=== PATIENT | female | born 1965 | race Caucasian/White ===

== ENCOUNTER 2019-03-31 01:23 | Inpatient (IN) ==
--- NOTE | 2019-03-31 03:50 | Internal Med History&Physical ---
<Billy Freeman - Last Filed: 03/31/19 04:22> Date of Encounter: 03/31/19 Time of Encounter: 03:40 Internal Medicine - H&P: HPI Admitted From: Emergency Dept History of present illness: Ms. Chaves is a 54 year old female with a past medical history of CHF, COPD on home prednisone, Mucinex, azithromycin and albuterol who presented to the [facility] emergency department with shortness of breath. Patient's family history is unknown at this point, also it is unknown how long the patient's symptoms have been lasting as this is not documented in the original emergency physicians note. The patient is noted to be a current every day smoker. Chart review shows the patient denies any past surgical/psychiatric history, has not reported any further medications or known drug allergies. It is noted that the patient did admit to having a cough and denying fever/chills rest of review of systems questioning is unknown. According to the original emergency physicians note the patient has a long-standing history of COPD but is never had to be on BiPAP or have any hospitalizations. It is noted that the patient arrived to the [facility] ED and had oxygen saturations in the 80% range which was refractory to nasal cannula at 2 L/m, the patient was not able to tolerate BiPAP despite being given Ativan and was refractory to nitroglycerin. The decision was made at that time to intubate the patient with fiberoptic video scope, which is said to be tolerated well without complications using 7.5 ET tube secured at 23 cm at the lips, propofol drip was initiated for sedation. Although there is an x-ray in the patient's chart it does not mention the endotracheal tube placement-I will place order at this time for portable stat chest x-ray for confirmation. EKG performed at the facility notes a sinus tachycardia without acute ischemia. Laboratory analysis from outside facility is significant for an elevated white blood cell count of 18.2, patient's hemoglobin is noted to be high at 16 with hematocrit 46.8 this is likely due to compensation for chronic COPD, patient's ABG reveals a respiratory acidosis with a pH of 7.28 and a PCO2 of 49, we will repeat this ABG as the patient has been on mechanical ventilation now for several hours, patient's potassium is also noted to be slightly decreased at 3.4 I will replace this with 20 mEq of potassium chloride IV push. EKG performed at outside facility shows a sinus tachycardia at a computer analyzed rate of 116 beats per minute, NE interval of 98 milliseconds, a QRS duration of 94 milliseconds, a QT/QTc interval of 331 / 460 milliseconds respectively. There are no significant ST segment elevations, depressions, pathologic Q waves, abnormal T-wave inversions, nor any other signs of acute ischemic change. Assessment and plan: Acute hypoxic/hypercarbic respiratory failure: Secondary to acute on chronic COPD exacerbation Patient intubated and mechanically ventilated with propofol sedation 125 mg methylprednisolone administered along with 6 mL of DuoNeb patient has received a single DuoNeb at outside facility Patient received 2 g magnesium sulfate at outside facility Patient received 500 mg azithromycin from outside facility as well as 1 g of Rocephin Repeat ABG stat plus daily Leukocytosis: Likely secondary to COPD stress response although there is neutrophilia Possible early air space disease Lactic acid within normal limits Time lactic acid Pro calcitonin Bloods/sputum cultures are pending. Hypokalemia: Potassium at 3.4 We will replenish with 20 mEq potassium chloride. DVT prophylaxis: EPCDs Past Med Surg Social Fam HX - Past Medical History Medical history: CHF, COPD Psychiatric history: no psych history - Past Surgical History Surgical History: no surgical history - Social History Smoking Status: Current every day smoker Smokeless Tobacco Status: No Alcohol use: none Drug use: none - Family History Sister Hx Family Cancer: Yes Internal Medicine - H&P: Meds Albuterol Sulfate [Proventil Hfa] 6.7 gm IH BID #1 hfa.[email or web address] 05/02/18 [Rx] Azithromycin [Azithromycin 6-Tab Pack] 250 mg PO PER PKG DI #6 tab 05/02/18 [Rx] Guaifenesin [Mucinex] 1,200 mg PO BID #20 tbbp.12hr 05/02/18 [Rx] predniSONE [PredniSONE] 40 mg PO DAILY #10 tablet 05/02/18 [Rx] Allergy/AdvReac Type Severity Reaction Status Date / Time No Known Allergies Allergy Verified 01/12/18 22:50 ROS unobtainable: due to endotracheal tube, due to mental status All Systems PM: A 10-system review of systems was performed and is negative for pertinent findings except as documented above in the HPI. - Constitutional Vitals: Resp BP Pulse Ox 14 133/92 99 03/31/19 03:31 03/31/19 03:31 03/31/19 03:31 General appearance: Present: A&O X 0 Exam: Upon my initial examination the patient is lying in hospital bed she is intubated, Mechanically ventilated and sedated with propofol to deep sedation Cross scale approximately 4. Patient's skin is warm dry and intact, pupils are equal reactive to light approximately 2 mm, patient's trachea is midline and supple cardiopulmonary auscultation reveals S1 and S2 without S3-S4 no murmurs gallops or rubs appreciated. There are diffuse wheezes noted throughout all l jessika lacey, abdomen is soft nontender nondistended no evidence of trauma, pulses are strong and equal bilaterally, there is no evidence of pedal edema, no cyanosis no pallor no erythema. - Head Head exam: Present: atraumatic, normal inspection, normocephalic - Eye Eye exam: Present: normal appearance, PERRL. Absent: scleral icterus - ENT ENT exam: Present: mucous membranes moist - Neck Neck exam general surgery: Present: supple, trachea midline - Respiratory Respiratory exam: Present: wheezes - Cardiovascular Cardiovascular exam: Present: RRR, +S1, +S2. Absent: clicks, diastolic murmur, distant heart sounds, gallop, irregular rhythm, JVD, rubs, +S3, systolic murmur - GI/Abdominal GI/Abdominal exam: Present: normal bowel sounds, soft. Absent: distended, firm, guarding, hernia, hepatomegaly, rebound, rigid, tenderness, no peritoneal signs - Extremities Exam Extremities exam: Present: warm, radial pulses palpable and symmetrical. Absent: pedal edema - Skin Skin exam: Present: dry, normal color, warm - Time Spent With Patient Total time spent is greater than 50% in coordination of care (as documented) at patient's floor/unit and/or counseling patient: <Fran Dickerson - Last Filed: 03/31/19 05:40> Date of Encounter: 03/31/19 Internal Medicine - H&P: HPI History of present illness: Ms. Chaves is a 54 year old female All Systems PM: A 10-system review of systems was performed and is negative for pertinent findings except as documented above in the HPI. - Constitutional Vitals: Temp Pulse Resp BP Pulse Ox 96.7 F L 90 21 105/67 97 03/31/19 04:00 03/31/19 05:00 03/31/19 05:08 03/31/19 05:08 03/31/19 05:08 Internal Med - H&P Results - ABG Interpretation ABG results: 03/31/19 04:24 ABG pH 7.07 L* D ABG pCO2 85 H* D ABG pO2 87 ABG HCO3 24 ABG Total CO2 27 H ABG O2 Saturation 91 L ABG Base Excess -8 L - Impressions ITS Impressions KUB X-Ray 03/31/19 04:41 IMPRESSION: Intragastric termination of the esophagogastric tube. D/ / David Benitez / David Benitez Interpreting Provider: David Benitez Chest X-Ray 03/31/19 04:43 IMPRESSION: Suboptimally visualized janis. Endotracheal tube terminates over the mid to lower trachea. Left basilar opacities and effusion. D/ / David Benitez / David Benitez Interpreting Provider: David Benitez - Time Spent With Patient Total time spent is greater than 50% in coordination of care (as documented) at patient's floor/unit and/or counseling patient: - Attending Attestation Patient seen and examined independently, including review of objective data including labs. I agree with plan of care as documented below by the resident with the following comments: Face to face encounter at 4am. Patient intubated and no family at bedside thus hisotry is limited and thus reviewed charts. Patient admitted for acute mixed respiratory failure with suspected COPD exacerbation was intubated in the ED and admitted to our ICU. Repeat ABG on arrival showed worsening hypercapnia and acidosis thus increased tidal volume and recheck abg pending. Procalcitonin 0.11 thus held antibiotics at this time. EKG, echocardiogram and trending troponin added to check for cardiac etiologies.
[2019-03-31] MEDS ORDERED: Naloxone 0.4 MG/ML INJ IVP PRN (04:06)
[2019-03-31] MEDS ORDERED: Artificial Tears SOLN 15 ML BOTTLE BOTH EYES PRN (04:06)
[2019-03-31] MEDS ORDERED: methylPREDNISolone 125 MG/2 ML VIAL IVP ONE (04:10)
[2019-03-31] MEDS ORDERED: Ipratropium/Albuterol Neb 3 ML IH ONE (04:10)
[2019-03-31 04:34] LABS: ABG Base Excess -8 mEq/L (-2 to 3); ABG HCO3 24 mEq/L (21-27); ABG Oxygen Saturation 91 % (95-98); ABG PCO2 85 mmHg (35-45); ABG PH 7.07 pH Units (7.32-7.45); ABG PO2 87 mmHg (85-104); ABG TCO2 27 mEq/L (20-26); Blood Gas Modality ASSIST CONTROL; Blood Gas PEEP 5 cm H2O; Blood Gas VT 450 cc
[2019-03-31] MEDS ORDERED: Potassium Chloride 20 MEQ, Lidocaine 1% 2 ML in 0.9 % Sodium Chloride 250 ML IVPB ONE (05:00)
[2019-03-31] MEDS: *HR* FentaNYL (PF) 100 MCG/2 ML VIAL IVP PRN ×2 (05:23→07:48)
[2019-03-31 08:01] LABS: Magnesium 2.3 mg/dL (1.6-2.6); Phosphorous 3.5 mg/dL (2.7-4.5)
[2019-03-31] MEDS ORDERED: *HR* Midazolam HCl 5 MG/5 ML VIAL IVP ONE ×3 (08:52→09:01)
--- NOTE | 2019-03-31 08:57 | Pulmonology Consult Note ---
<Kevin Almendarez W - Last Filed: 03/31/19 13:24> Date of Encounter: 03/31/19 Medications and Allergies Albuterol Sulfate [Proventil Hfa] 6.7 gm IH BID #1 hfa.[email or web address] 05/02/18 [Rx] Azithromycin [Azithromycin 6-Tab Pack] 250 mg PO PER PKG DI #6 tab 05/02/18 [Rx] Guaifenesin [Mucinex] 1,200 mg PO BID #20 tbbp.12hr 05/02/18 [Rx] predniSONE [PredniSONE] 40 mg PO DAILY #10 tablet 05/02/18 [Rx] Allergy/AdvReac Type Severity Reaction Status Date / Time No Known Allergies Allergy Verified 01/12/18 22:50 All Systems: The remainder of the systems were reviewed and are negative Physical Examination Vital Signs: Vital Signs, Last 4 Hours Temp Pulse Resp BP Pulse Ox 03/31/19 13:00 102 21 116/71 98 03/31/19 12:28 98.8 F 03/31/19 12:00 103 18 104/66 99 03/31/19 11:00 95 21 99/62 98 03/31/19 10:19 21 99/65 97 03/31/19 10:00 94 19 99/62 98 Ventilator Settings Ventilator Settings: Ventilator Settings, Last 8 Hours Ventilator Tidal Volume 500 Setting Ventilator Tidal Volume 500 Setting Ventilator Tidal Volume 500 Setting Ventilator Tidal Volume 500 Setting Ventilator Tidal Volume 500 Setting Ventilator Respiratory Rate 18 Setting Ventilator Respiratory Rate 18 Setting Ventilator Respiratory Rate 18 Setting Ventilator Respiratory Rate 18 Setting Ventilator Respiratory Rate 18 Setting Actual Respiratory Rate 21 Actual Respiratory Rate 22 Actual Respiratory Rate 22 Actual Respiratory Rate 22 Positive End Expiratory 5 Pressure Positive End Expiratory 5 Pressure Positive End Expiratory 5 Pressure Positive End Expiratory 5 Pressure Positive End Expiratory 5 Pressure Peak Inspiratory Airway 26 Pressure Peak Inspiratory Airway 20 Pressure Peak Inspiratory Airway 38 Pressure Peak Inspiratory Airway 38 Pressure Results - Laboratory Findings CBC and BMP: 03/31/19 11:41 03/31/19 09:36 ABG ABG pH 7.23 pH Units (7.32-7.45) L 03/31/19 10:51 ABG pCO2 53 mmHg (35-45) H 03/31/19 10:51 ABG pO2 95 mmHg (85-104) 03/31/19 10:51 ABG O2 Saturation 96 % (95-98) 03/31/19 10:51 Abnormal lab findings: Abnormal lab results WBC 15.7 K/mcL (4.3-11.1) H 03/31/19 11:41 RDW 14.7 % (11.5-14.5) H 03/31/19 11:41 Neutrophils # 15.0 K/mcL (1.6-8.9) H 03/31/19 11:41 Lymphocytes # 0.4 K/mcL (0.6-4.6) L 03/31/19 11:41 ABG pH 7.23 pH Units (7.32-7.45) L 03/31/19 10:51 ABG pCO2 53 mmHg (35-45) H 03/31/19 10:51 ABG Total CO2 27 mEq/L (20-26) H 03/31/19 04:24 ABG O2 Saturation 91 % (95-98) L 03/31/19 04:24 ABG Base Excess -6 mEq/L (-2 to 3) L 03/31/19 10:51 Chloride 111 mEq/L (98-107) H 03/31/19 09:36 Carbon Dioxide 18 mEq/L (23-29) L 03/31/19 09:36 Glucose 176 mg/dL (70-105) H 03/31/19 09:36 POC Glucose 162 mg/dL (70-99) H 03/31/19 12:14 Calcium 7.9 mg/dL (8.6-10.3) L 03/31/19 09:36 Total Bilirubin 0.2 mg/dL (0.3-1.0) L 03/31/19 09:36 - Clinical Findings Intake & Output: Intake & Output 03/30/19 03/31/19 03/31/19 23:59 07:59 15:59 Intake Total 362 / 362 Output Total 850 / 1275 425 / 1275 Balance -488 / -913 -425 / -913 Weight 63.4 kg Consult Discharge Plan - Plan Referrals: NONE,PCP [Primary Care Provider] - - Attending Attestation I examined this patient and my medical decision-making was reviewed with the Resident Physician. I agree with the documented findings, disposition and treatment plan as described except to the extent set forth below. We independently had [id number] contact with the patient I spent 33 min of Critical Care time with this patient. It involved decision making of high complexity to assess, manipulate, and support vital organ system failure and/or to prevent further life threatening deterioration of the patie nt's condition. The time involved in the performance of separately reportable procedures was not counted toward critical care time. Patient seen and examined at bedside Labs, radiology, chart personally reviewed. Management was reviewed during multidisciplinary critical care rounds. RIGGER THIRD: Patient presenting with acute encephalopathy likely secondary to metabolic derangement she got intubated deeply sedated for her respiratory status no gross neurological deficits per medical record prior to intubation and the patient does have spontaneous movement of all extremities without clear focal neurological deficits. Goal Cross day would be about 3 or 4 given her underlying respiratory status to mitigate the effects of of the ventilator dys synchrony Pulm: Acute on chronic hypoxic hypercapnic respiratory failure which appears likely secondary to COPD exacerbation requiring intubation she had a very severe respiratory acidosis reduction now improving with ventilator management further adjusted her ventilator to decrease tidal volume and increased ID ratio also decreased inspiratory time to facilitate this. The implant O pressures are appropriate she will need deep sedation possibly even paralysis of situation is not improved we will continue schedule bronchodilators IV steroids and antibiotics for now Cards: Blood pressure monitored and stable continue monitoring on telemetry GI: GI prophylaxis while on vent Nutrition: Nothing by mouth for now Renal: UOP Monitored, Cont to Trend sCr and monitor Electrolytes. ID: She is on broad-spectrum antibiotics for possible pneumonia. De-escalate based upon clinical course and cultures Heme/Onc: DVT prophylaxis given Endo: Glucose Monitored Integ/MSK: Skin Care per routine ICU Nursing Protocol to prevent ulcers. Lines: All lines examined without evidence of infection : Dispo: Monitor in ICU for critical illness CODE: Full Code <Rei Guevara F - Last Filed: 03/31/19 13:42> Date of Encounter: 03/31/19 Time of Encounter: 08:57 Assessment and Plan (1) Acute respiratory failure Current Visit: Yes Status: Acute Likely d/t COPD exacerbation of chronic disease. Patient was intubated and sedated, now on fentanyl, propofol, versed gtt. Received azithromycin, rocephin, Mg at [facility]. Plan: - Intubated and sedated, vent bundle ordered, daily ABGs - Started on steroids, duonebs - Cont azithryomcyin, rocephin 03/31 - Cont to monitor vital signs Qualifiers: Respiratory failure complication: hypoxia and hypercapnia Qualified Co de(s): J96.01 - Acute respiratory failure with hypoxia; J96.02 - Acute respiratory failure with hypercapnia (2) Acute encephalopathy Current Visit: Yes Status: Acute Likely d/t hypoxia and metabolic derangements. Plan: - Intubated and sedated - Cont to monitor neuro status and vitals signs (3) Leukocytosis Current Visit: Yes Status: Acute Likely 2/2 to COPD stress response, there are elevated neutrophils. Will still consider infection as possible source. Plan: - Cont rocephin and ceftriaxone - Blood, sputum, urine cx pending - Resp infection panel and urine antigen testing pending Qualifiers: Leukocytosis type: unspecified Qualified Code(s): D72.829 - Elevated white blood cell count, unspecified (4) DVT prophylaxis Current Visit: Yes Status: Acute DVT PPX: heparin SQ Analgesia: fentanyl Sedation: versed, propofol SBT: none Glycemic control: none Bowl regimen: none Activity: intubated/sedated Fluids: none Electrolytes: replete as necessary Nutrition: none GI ppx: PPI Lines: 2x PIVs, ET, OG, meier Consults: pulm Code: FULL Dispo: ICU History of Present Illness Consult date: 03/31/19 Requesting physician: Fili Villarreal Reason for consult: dyspnea Chief complaint: hypoxia History of present illness: Vision is a 54-year-old female with a past medical history CHF, COPD presented with respiratory distress. She is transferred here from [facility] emergency department. Patient did endorse a history of being a current every day smoker. Per chart review, patient denied having any cough, fevers, chills. She has a long-standing history of COPD, but has never had to be on BiPAP or hospitalized. In the ED, patient was not able to tolerate BiPAP despite getting Ativan and was refractory to nitroglycerin. Patient was then intubated with propofol for sedation. An EKG at the facility noted sinus tachycardia without acute ischemia. Initial labs are significant for a WBC of 18.2, hemoglobin 16, respiratory acidosis with pH of 7.28 and PCO2 49, K of 3.4 which was repleted. This morning at bedside, patient was still intubated/sedated. Appeared to be in discomfort, fentanyl and versed were added. Other testing was obtained including a respiratory infection panel and urine antigens for Legionella and strep pneumo. Past Med Surg Social Fam HX - Past Medical History Source: unable to obtain Medical history: CHF, COPD Psychiatric history: no psych history - Past Surgical History Surgical History: no surgical history - Social History Smoking Status: Current every day smoker Smokeless Tobacco Status: No Alcohol use: none Drug use: none - Family History Sister Hx Family Cancer: Yes ROS unobtainable: due to endotracheal tube All Systems: The remainder of the systems were reviewed and are negative Physical Examination Vital Signs: Vital Signs, Last 4 Hours Temp Pulse Resp BP Pulse Ox 03/31/19 08:03 97.5 F L 87 18 106/67 96 03/31/19 07:54 91 03/31/19 07:22 22 106/67 96 03/31/19 07:00 81 22 104/68 95 03/31/19 06:00 100 22 99/63 98 03/31/19 05:08 21 105/67 97 03/31/19 05:00 90 20 105/67 97 General appearance: no acute distress Eyes: nonicteric ENT: oropharynx moist Neck: supple Effort: normal Inspection: normal Auscultation: bilateral: clear Percussion: bilateral: not dull Cardiovascular: regular rate and rhythm Gastrointestinal: normoactive bowel sounds, non-distended Integumentary: normal Extremities: no cyanosis, no edema, no clubbing Musculoskeletal: no deformities, ROM normal unable to assess due to mental status Ventilator Settings Ventilator Settings: Ventilator Settings, Last 8 Hours Ventilator Tidal Volume 500 Setting Ventilator Tidal Volume 500 Setting Ventilator Tidal Volume 500 Setting Ventilator Tidal Volume 500 Setting Ventilator Tidal Volume 500 Setting Ventilator Tidal Volume 500 Setting Ventilator Tidal Volume 450 Setting Ventilator Tidal Volume 500 Setting Ventilator Tidal Volume 450 Setting Ventilator Tidal Volume 450 Setting Ventilator Tidal Volume 450 Setting Ventilator Respiratory Rate 18 Setting Ventilator Respiratory Rate 18 Setting Ventilator Respiratory Rate 18 Setting Ventilator Respiratory Rate 18 Setting Ventilator Respiratory Rate 18 Setting Ventilator Respiratory Rate 18 Setting Ventilator Respiratory Rate 14 Setting Ventilator Respiratory Rate 18 Setting Ventilator Respiratory Rate 14 Setting Ventilator Respiratory Rate 14 Setting Ventilator Respiratory Rate 14 Setting Actual Respiratory Rate 22 Actual Respiratory Rate 22 Actual Respiratory Rate 22 Actual Respiratory Rate 21 Actual Respiratory Rate 20 Actual Respiratory Rate 14 Actual Respiratory Rate 14 Actual Respiratory Rate 14 Positive End Expiratory 5 Pressure Positive End Expiratory 5 Pressure Positive End Expiratory 5 Pressure Positive End Expiratory 5 Pressure Positive End Expiratory 5 Pressure Positive End Expiratory 5 Pressure Positive End Expiratory 5 Pressure Positive End Expiratory 5 Pressure Positive End Expiratory 5 Pressure Positive End Expiratory 5 Pressure Peak Inspiratory Airway 20 Pressure Peak Inspiratory Airway 38 Pressure Peak Inspiratory Airway 38 Pressure Peak Inspiratory Airway 29 Pressure Peak Inspiratory Airway 33 Pressure Peak Inspiratory Airway 36 Pressure Peak Inspiratory Airway 35 Pressure Peak Inspiratory Airway 36 Pressure Results - Laboratory Findings CBC and BMP: 03/31/19 11:41 03/31/19 09:36 ABG ABG pH 7.07 pH Units (7.32-7.45) L* D 03/31/19 04:24 ABG pCO2 85 mmHg (35-45) H* D 03/31/19 04:24 ABG pO2 87 mmHg (85-104) 03/31/19 04:24 ABG O2 Saturation 91 % (95-98) L 03/31/19 04:24 Abnormal lab findings: Abnormal lab results ABG pH 7.07 pH Units (7.32-7.45) L* D 03/31/19 04:24 ABG pCO2 85 mmHg (35-45) H* D 03/31/19 04:24 ABG Total CO2 27 mEq/L (20-26) H 03/31/19 04:24 ABG O2 Saturation 91 % (95-98) L 03/31/19 04:24 ABG Base Excess -8 mEq/L (-2 to 3) L 03/31/19 04:24 - Clinical Findings Intake & Output: Intake & Output 03/30/19 03/31/19 03/31/19 23:59 07:59 15:59 Intake Total 362 / 362 Output Total 850 / 850 Balance -488 / -488 Weight 63.4 kg
[2019-03-31] MEDS: FentaNYL (PF) 1,000 MCG in 0.9 % Sodium Chloride 80 ML IVC SCH (09:12)
[2019-03-31] MEDS: Chlorhexidine Rinse 15 ML MOUTHWASH MM SCH ×2 (09:18→20:39)
[2019-03-31] MEDS: Artificial Tears SOLN 15 ML BOTTLE BOTH EYES SCH ×4 (09:19→20:39)
[2019-03-31] MEDS ORDERED: Ipratropium/Albuterol Neb 3 ML ONE (09:51)
[2019-03-31] MEDS: Ipratropium/Albuterol Neb 3 ML IH SCH ×6 (09:52→23:52)
[2019-03-31] MEDS ORDERED: Perflutren Lipid Microsphere 1.3 ML in 0.9 % Sodium Chloride 8.7 ML IVP ONE (10:30)
[2019-03-31 10:40] LABS: BUN/Creatinine Ratio 14 (6-26); Blood Urea Nitrogen 10 mg/dL (6-20); Carbon Dioxide 18 mEq/L (23-29); Chloride 111 mEq/L (98-107); Glucose 176 mg/dL (70-105); Potassium 4.4 mEq/L (3.5-5.1); Sodium 140 mEq/L (136-145); eGFR For African Americans > 60 (> 60); eGFR For Non-African Americans > 60 (> 60)
[2019-03-31 10:41] LABS: Alanine Aminotransferase 17 Units/L (7-52); Albumin 4.1 g/dL (3.5-5.7); Albumin/Globulin Ratio 1.5 (1.1-2.2); Alkaline Phosphatase 56 Units/L (34-104); Aspartate Amino Transferase 19 Units/L (13-39); Bilirubin,Total 0.2 mg/dL (0.3-1.0); Calcium 7.9 mg/dL (8.6-10.3); Globulin 2.8 g/dL (2.4-3.5); Osmolality,Calculated 293 (280-300); Total Protein 6.9 g/dL (6.4-8.9)
[2019-03-31 10:56] LABS: ABG Base Excess -6 mEq/L (-2 to 3); ABG HCO3 22 mEq/L (21-27); ABG Oxygen Saturation 96 % (95-98); ABG PCO2 53 mmHg (35-45); ABG PH 7.23 pH Units (7.32-7.45); ABG PO2 95 mmHg (85-104); ABG TCO2 24 mEq/L (20-26); Blood Gas Modality SF; Blood Gas PEEP 5 cm H2O; Blood Gas VT 480 cc
--- NOTE | 2019-03-31 12:08 | Event Note ---
Date of Encounter: 03/31/19 Time of Encounter: 07:10 I reviewed the case from the eyewear manufacturing tech this morning, and I saw patient independently. I also discussed the patient in collaboration with Dr. Almendarez and the MDR team. Patient is currently intubated, sedated, and exhibiting some wheezing and coughing on ventilator. No family members available to [facility]. Exam: Vitals reviewed General: Intubated, sedated HEENT: ETT/OG in place, no icterus Chest: diffuse wheezing, prolonged expiratory phase, occasionally coughing on vent; RRR, no MTR Abdomen: soft, NT, ND, no HSMG, + BS Ext: equal pulses; no calf swelling; no edema Labs reviewed Imp/Plan: 1. Acute hypercarbic and hypoxic respiraotry failure: Vent managmenet per Dr. Garcia; discussed in MDR rounds. Steroids, aerosols, and antibiotics ordered. Urine toxicity screen ordered. 2. Hypokalemia: Resolved; monitor. 3. Leukocytosis: Blood cultures pending. Will order sputum culture. Continue antibiotics. 4. DVT prophylaxis: Heparin SQ.
[2019-03-31 12:14] LABS: Basophils % 0.1 %; Hematocrit 43.5 % (35.3-44.9); Immature Granulocytes % 0.5 % (0-4); Lymphocytes # 0.4 K/mcL (0.6-4.6); Lymphocytes % 2.6 %; Mean Corpuscular HGB Conc 32.2 g/dL (31.6-35.5); Mean Corpuscular Hemoglobin 30.6 pg (28.0-33.3); Mean Platelet Volume 12.1 fL (9.4-12.4); Monocytes # 0.2 K/mcL (0.0-1.3); Monocytes % 1.3 %; Platelet Count 210 K/mcL (140-400); Red Blood Count 4.58 M/mcL (3.82-4.97); Red Cell Distribution Width 14.7 % (11.5-14.5); Segmented Neutrophils % 95.5 %; White Blood Count 15.7 K/mcL (4.3-11.1)
[2019-03-31 13:25] LABS: Bilirubin,Urine Small (Negative); Blood,Urine Moderate (Negative); Clarity,Urine Turbid (Clear); Color,Urine Yellow (Yellow); Glucose,Urine (UA) 250 mg/dL (Normal); Ketones,Urine Negative (Negative); Leukocyte Esterase,Urine Negative (Negative); Nitrite,Urine Negative (Negative); Protein,Urine 30 mg/dL (Neg-Trace); Specific Gravity,Urine > 1.030 (1.010-1.025); Urobilinogen,Urine Normal (Normal)
[2019-03-31 13:27] LABS: Bacteria,Urine None Seen per hpf (None-Few); Hyaline Casts,Urine None Seen per lpf (None-Few); RBC,Urine TNTC per hpf (0-3); Squamous Epithelial Cell,Urine Many per lpf (None-Few)
[2019-03-31 13:51] LABS: Amphetamine Screen,Urine Negative ng/mL (Cutoff=1000); Barbiturate Screen,Urine Negative ng/mL (Cutoff=200); Benzodiazepines Screen,Urine Positive ng/mL (Cutoff=200); Cannabinoid Screen,Urine Negative ng/mL (Cutoff = 50); Cocaine Screen,Urine Negative ng/mL (Cutoff= 300); Opiate Screen,Urine Negative ng/mL (Cutoff=300); Phencyclidine Screen,Urine Negative ng/mL (Cutoff=25)
[2019-03-31] MEDS: Acetaminophen 325 MG TABLET PO PRN (16:45)
[2019-03-31] MEDS: *HR* Heparin 5,000 UNIT/ML VIAL SQ SCH (16:46)
[2019-03-31] MEDS: methylPREDNISolone 125 MG/2 ML VIAL IVP SCH (16:46)
[2019-03-31] MEDS: Pantoprazole 40 MG VIAL IVP SCH (17:42)
--- NOTE | 2019-03-31 17:49 | Electrocardiograph Report ---
[place] [id number] Test Date: 2019-03-31 Pat Name: Barbara Chaves Department: 109 Room: 12 Gender: F Education Intern: : 1965 Requested By: Fran Dickerson Order Number: [id number] Reading MD: Lev Navarro Measurements Intervals Given Rate: 82 P: 72 MN: 161 QRS: 82 QRSD: 97 T: 69 QT: 431 QTc: 470 Interpretive Statements SINUS RHYTHM Electronically Signed On 03-31-2019 17:47:08 EDT by Lev Navraro
[2019-03-31 18:54] LABS: Adenovirus Not Detected (Not Detect); Bordetella Pertussis Not Detected (Not Detect); Chlamydophila pneumoniae Not Detected (Not Detect); Coronavirus 229E Not Detected (Not Detect); Coronavirus HKU1 Not Detected (Not Detect); Coronavirus NL63 Not Detected (Not Detect); Coronavirus OC43 Not Detected (Not Detect); Human Metapneumovirus Not Detected (Not Detect); Human Rhinovirus/Enterovirus DETECTED (Not Detect); Influenza A Subtype 2009 H1 Not Detected (Not Detect); Influenza A Untypeable Not Detected (Not Detect); Influenza B Not Detected (Not Detect); Mycoplasma pneumoniae Not Detected (Not Detect); Parainfluenza Virus 1 Not Detected (Not Detect); Parainfluenza Virus 2 Not Detected (Not Detect); Parainfluenza Virus 3 Not Detected (Not Detect); Parainfluenza Virus 4 Not Detected (Not Detect); Respiratory Syncytial Virus Not Detected (Not Detect)
[2019-03-31] MEDS: Calcium Gluconate 1gm/50mL 1 GM/50 ML BAG IVPB SCH ×2 (21:15→21:32)
[2019-03-31] MEDS: cefTRIAXone 1,000 MG in Water for inj. (sterile) 10 ML IVP SCH (22:50)
[2019-03-31] MEDS: Azithromycin 500 MG in 0.9 % Sodium Chloride 250 ML IVPB SCH (23:08)
[2019-04-01] MEDS: Artificial Tears SOLN 15 ML BOTTLE BOTH EYES SCH ×7 (00:49→23:11)
[2019-04-01] MEDS: FentaNYL (PF) 1,000 MCG in 0.9 % Sodium Chloride 80 ML IVC SCH ×2 (00:50→18:57)
[2019-04-01] MEDS: Ipratropium/Albuterol Neb 3 ML IH SCH ×5 (03:30→20:36)
[2019-04-01 04:47] LABS: ABG Base Excess -3 mEq/L (-2 to 3); ABG HCO3 23 mEq/L (21-27); ABG Oxygen Saturation 98 % (95-98); ABG PCO2 43 mmHg (35-45); ABG PH 7.34 pH Units (7.32-7.45); ABG PO2 102 mmHg (85-104); ABG TCO2 24 mEq/L (20-26); Blood Gas Modality PRVC; Blood Gas PEEP 5 cm H2O; Blood Gas VT 480 cc
[2019-04-01] MEDS: *HR* Heparin 5,000 UNIT/ML VIAL SQ SCH ×2 (05:12→17:08)
[2019-04-01] MEDS: methylPREDNISolone 125 MG/2 ML VIAL IVP SCH ×2 (05:12→17:08)
[2019-04-01 05:49] LABS: Basophils % 0.1 %; Hematocrit 38.6 % (35.3-44.9); Immature Granulocytes % 0.5 % (0-4); Lymphocytes # 0.8 K/mcL (0.6-4.6); Lymphocytes % 4.7 %; Mean Corpuscular HGB Conc 31.9 g/dL (31.6-35.5); Mean Corpuscular Hemoglobin 29.7 pg (28.0-33.3); Mean Corpuscular Volume 93.2 fL (83.0-100.0); Mean Platelet Volume 12.3 fL (9.4-12.4); Monocytes # 0.9 K/mcL (0.0-1.3); Neutrophils # 15.7 K/mcL (1.6-8.9); Platelet Count 209 K/mcL (140-400); Red Blood Count 4.14 M/mcL (3.82-4.97); Red Cell Distribution Width 15.1 % (11.5-14.5); Segmented Neutrophils % 89.7 %; White Blood Count 17.5 K/mcL (4.3-11.1)
[2019-04-01 05:51] LABS: Hemoglobin 12.3 g/dL (11.5-15.4)
[2019-04-01 06:08] LABS: Alanine Aminotransferase 15 Units/L (7-52); Albumin 3.8 g/dL (3.5-5.7); Albumin/Globulin Ratio 1.5 (1.1-2.2); Alkaline Phosphatase 49 Units/L (34-104); Aspartate Amino Transferase 11 Units/L (13-39); BUN/Creatinine Ratio 23 (6-26); Bilirubin,Total 0.2 mg/dL (0.3-1.0); Blood Urea Nitrogen 14 mg/dL (6-20); Calcium 8.7 mg/dL (8.6-10.3); Carbon Dioxide 25 mEq/L (23-29); Chloride 108 mEq/L (98-107); Globulin 2.5 g/dL (2.4-3.5); Glucose 142 mg/dL (70-105); Magnesium 2.2 mg/dL (1.6-2.6); Osmolality,Calculated 295 (280-300); Potassium 4.4 mEq/L (3.5-5.1); Sodium 141 mEq/L (136-145); Total Protein 6.3 g/dL (6.4-8.9); eGFR For African Americans > 60 (> 60); eGFR For Non-African Americans > 60 (> 60)
[2019-04-01] MEDS: Pantoprazole 40 MG VIAL IVP SCH (07:41)
[2019-04-01] MEDS: Acetaminophen 325 MG TABLET PO PRN (07:41)
[2019-04-01] MEDS: Chlorhexidine Rinse 15 ML MOUTHWASH MM SCH ×2 (07:41→20:16)
--- NOTE | 2019-04-01 09:02 | Pulmonology Progress Note ---
Date of Encounter: 04/01/19 Time of Encounter: 07:00 Assessment and Plan (1) Acute respiratory failure with hypoxia and hypercapnia Current Visit: Yes Status: Acute I spent 34min of Critical Care time with this patient. It involved decision making of high complexity to assess, manipulate, and support vital organ system failure and/or to prevent further life threatening deterioration of the patient's condition. The time involved in the performance of separately reportable procedures was not counted toward critical care time. Patient seen and examined at bedside Labs, radiology, chart personally reviewed. Management was reviewed during multidisciplinary critical care rounds. 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 Continue to lower propofol first and decreased [place] we will add Precedex to achieve this continue analgesia with fentanyl Pulm: Acute on chronic hypoxic hypercapnic respiratory failure secondary to COPD exacerbation likely mediated by a viral infection. Patient remains on the vent acceptable gas exchange today we will do new aggressive bronchodilator and systemic glucocorticoid strategy once her mental status improves can consider spontaneous breathing trial. Cards: Blood pressure monitored and stable today continue monitoring on telemetry GI: GI prophylaxis is given while on vent Nutrition: Enteral nutrition per dietary recommendations Renal: UOP Monitored, Cont to Trend sCr and monitor Electrolytes. ID: Respiratory PCR positive for logan-/Rhino virus symptomatic management of this she has pyuria clinically and we will continue to treat for urinary tract infection pending final culture. She does have leukocytosis which in part may be from that degree of systemic glucocorticoid administration Heme/Onc: DVT prophylaxis given while on vent H&H and platelets remained stable continue daily monitoring Endo: Glucose Monitored continue sliding scale insulin as needed Integ/MSK: Skin Care per routine ICU Nursing Protocol to prevent ulcers. Lines: All lines examined without evidence of infection : Dispo: Remain ICU for critical illness CODE: Full (2) Acute exacerbation of chronic obstructive airways disease Current Visit: No Status: Acute (3) Acute encephalopathy Current Visit: Yes Status: Acute (4) Urinary tract infection Current Visit: Yes Status: Acute Qualifiers: Qualified Code(s): N39.0 - Urinary tract infection, site not specified; R31.9 - Hematuria, unspecified Subjective Principal diagnosis: Respiratory Failure Interval history: Remains sedated overnight when sedation was tried to be lifted today she ended up coughing and desaturating. Blood pressure is been stable. Nursing staff is noted to have nadja pus from the urine out of the Anthony catheter Objective PUL Vital signs: Last Vital Signs Temp 97.9 F 04/01/19 06:57 Pulse 90 04/01/19 08:00 Resp 17 04/01/19 08:00 BP 98/67 04/01/19 08:00 Pulse Ox 97 04/01/19 08:00 General appearance: other (intubated and sedated ) Eyes: nonicteric ENT: other (ETT in satisfactory position ) Neck: supple Auscultation: bilateral: wheezes (faint expiratory wheezes noted ) Cardiovascular: regular rate and rhythm Gastrointestinal: normoactive bowel sounds, soft, non-tender Integumentary: normal Extremities: no cyanosis, no edema, no clubbing Musculoskeletal: no deformities pupils equal and round, unable to assess due to mental status other (calm appearing ) Ventilator Settings Ventilator Settings: Ventilator Settings, Last 8 Hours Ventilator Tidal Volume 480 Setting Ventilator Tidal Volume 480 Setting Ventilator Tidal Volume 480 Setting Ventilator Tidal Volume 480 Setting Ventilator Tidal Volume 480 Setting Ventilator Tidal Volume 480 Setting Ventilator Tidal Volume 480 Setting Ventilator Tidal Volume 480 Setting Ventilator Tidal Volume 480 Setting Ventilator Respiratory Rate 16 Setting Ventilator Respiratory Rate 16 Setting Ventilator Respiratory Rate 16 Setting Ventilator Respiratory Rate 16 Setting Ventilator Respiratory Rate 16 Setting Ventilator Respiratory Rate 16 Setting Ventilator Respiratory Rate 16 Setting Ventilator Respiratory Rate 16 Setting Ventilator Respiratory Rate 16 Setting Actual Respiratory Rate 16 Actual Respiratory Rate 18 Actual Respiratory Rate 18 Actual Respiratory Rate 16 Actual Respiratory Rate 16 Actual Respiratory Rate 16 Actual Respiratory Rate 16 Actual Respiratory Rate 16 Positive End Expiratory 5 Pressure Positive End Expiratory 5 Pressure Positive End Expiratory 5 Pressure Positive End Expiratory 5 Pressure Positive End Expiratory 5 Pressure Positive End Expiratory 5 Pressure Positive End Expiratory 5 Pressure Positive End Expiratory 5 Pressure Positive End Expiratory 5 Pressure Peak Inspiratory Airway 25 Pressure Peak Inspiratory Airway 26 Pressure Peak Inspiratory Airway 26 Pressure Peak Inspiratory Airway 28 Pressure Peak Inspiratory Airway 26 Pressure Peak Inspiratory Airway 27 Pressure Peak Inspiratory Airway 29 Pressure Peak Inspiratory Airway 26 Pressure Results - Laboratory Findings CBC and BMP: 04/01/19 05:12 04/01/19 05:12 ABG ABG pH 7.34 pH Units (7.32-7.45) 04/01/19 04:44 ABG pCO2 43 mmHg (35-45) 04/01/19 04:44 ABG pO2 102 mmHg (85-104) 04/01/19 04:44 ABG O2 Saturation 98 % (95-98) 04/01/19 04:44 Abnormal lab findings: Abnormal lab results WBC 17.5 K/mcL (4.3-11.1) H 04/01/19 05:12 RDW 15.1 % (11.5-14.5) H 04/01/19 05:12 Neutrophils # 15.7 K/mcL (1.6-8.9) H 04/01/19 05:12 Lymphocytes # 0.4 K/mcL (0.6-4.6) L 03/31/19 11:41 ABG pH 7.23 pH Units (7.32-7.45) L 03/31/19 10:51 ABG pCO2 53 mmHg (35-45) H 03/31/19 10:51 ABG Total CO2 27 mEq/L (20-26) H 03/31/19 04:24 ABG O2 Saturation 91 % (95-98) L 03/31/19 04:24 ABG Base Excess -3 mEq/L (-2 to 3) L 04/01/19 04:44 Chloride 108 mEq/L (98-107) H 04/01/19 05:12 Carbon Dioxide 18 mEq/L (23-29) L 03/31/19 09:36 Glucose 142 mg/dL (70-105) H 04/01/19 05:12 POC Glucose 123 mg/dL (70-99) H 04/01/19 06:01 Calcium 7.9 mg/dL (8.6-10.3) L 03/31/19 09:36 Total Bilirubin 0.2 mg/dL (0.3-1.0) L 04/01/19 05:12 AST 11 Units/L (13-39) L 04/01/19 05:12 Serum Total Protein 6.3 g/dL (6.4-8.9) L 04/01/19 05:12 Urine Clarity Turbid (Clear) A 03/31/19 12:52 Ur Specific [place] > 1.030 (1.010-1.025) H 03/31/19 12:52 Urine Protein 30 mg/dL (Neg-Trace) H 03/31/19 12:52 Urine Glucose (UA) 250 mg/dL (Normal) H 03/31/19 12:52 Urine Blood Moderate (Negative) H 03/31/19 12:52 Urine Bilirubin Small (Negative) H 03/31/19 12:52 Urine Microscopic RBC TNTC per hpf (0-3) H 03/31/19 12:52 Urine Microscopic WBC 5-15 per hpf (0-3) H 03/31/19 12:52 Ur Squamous Epith Cells Many per lpf (None-Few) H 03/31/19 12:52 Ur Buprenorphine Scrn Positive ng/mL (Cutoff=5) H 03/31/19 12:57 U Benzodiazepines Scrn Positive ng/mL (Esndnb=272) H 03/31/19 12:57 Entero/Rhino (PCR) DETECTED (Not Detect) A 03/31/19 17:08 - Microbiology Findings Microbiology Findings: Microbiology, Last 48 Hours 03/31/19 12:57 Urine Culture - Preliminary Urine,[place] Culture is incubating. 03/31/19 12:57 Legionella Antigen - Final Urine,Catheterized (Straight) Streptococcus pneumoniae Antigen (M - Final 03/31/19 07:53 Sputum Culture - Preliminary Aspirate - Diagnostic Findings Chest x-ray: report reviewed, image reviewed - Clinical Findings Intake & Output: Intake & Output 03/31/19 04/01/19 04/01/19 23:59 07:59 15:59 Intake Total 310 / 772 740 / 740 Output Total 160 / 1435 825 / 825 Balance 150 / -663 -85 / -85 Weight 69.7 kg - VTE Documentation of Mechanical Device: Intermittent pneumatic compression device Consult Discharge Plan - Plan Referrals: NONE,PCP [Primary Care Provider] -
[2019-04-01] MEDS ORDERED: Budesonide/Formoterol 160/4.5 1 PUFF INH IH ONE (20:30)
[2019-04-01] MEDS: Budesonide/Formoterol 80/4.5 1 PUFF INH IH SCH (20:37)
[2019-04-01] MEDS: Azithromycin 500 MG in 0.9 % Sodium Chloride 250 ML IVPB SCH (21:58)
[2019-04-01] MEDS: cefTRIAXone 1,000 MG in Water for inj. (sterile) 10 ML IVP SCH ×2 (21:59→23:11)
[2019-04-02] MEDS: Ipratropium/Albuterol Neb 3 ML IH SCH ×7 (00:09→23:34)
[2019-04-02] MEDS: Artificial Tears SOLN 15 ML BOTTLE BOTH EYES SCH ×6 (04:30→23:10)
[2019-04-02] MEDS: *HR* Heparin 5,000 UNIT/ML VIAL SQ SCH ×2 (05:38→18:23)
[2019-04-02] MEDS: methylPREDNISolone 125 MG/2 ML VIAL IVP SCH ×2 (05:38→18:22)
[2019-04-02 05:42] LABS: ABG Base Excess 4 mEq/L (-2 to 3); ABG HCO3 30 mEq/L (21-27); ABG Oxygen Saturation 97 % (95-98); ABG PCO2 51 mmHg (35-45); ABG PH 7.38 pH Units (7.32-7.45); ABG PO2 91 mmHg (85-104); ABG TCO2 32 mEq/L (20-26); Blood Gas Modality ASSIST CONTROL; Blood Gas PEEP 5 cm H2O; Blood Gas VT 480 cc
[2019-04-02 06:25] LABS: Basophils % 0.1 %; Hematocrit 40.2 % (35.3-44.9); Hemoglobin 12.7 g/dL (11.5-15.4); Immature Granulocytes % 1.5 % (0-4); Lymphocytes % 5.8 %; Mean Corpuscular HGB Conc 31.6 g/dL (31.6-35.5); Mean Corpuscular Hemoglobin 30.3 pg (28.0-33.3); Mean Corpuscular Volume 95.9 fL (83.0-100.0); Mean Platelet Volume 11.9 fL (9.4-12.4); Monocytes # 0.7 K/mcL (0.0-1.3); Monocytes % 4.5 %; Neutrophils # 14.6 K/mcL (1.6-8.9); Platelet Count 215 K/mcL (140-400); Red Blood Count 4.19 M/mcL (3.82-4.97); Red Cell Distribution Width 15.4 % (11.5-14.5); Segmented Neutrophils % 88.1 %; White Blood Count 16.6 K/mcL (4.3-11.1)
[2019-04-02 06:42] LABS: Alanine Aminotransferase 15 Units/L (7-52); Albumin 3.7 g/dL (3.5-5.7); Albumin/Globulin Ratio 1.5 (1.1-2.2); Alkaline Phosphatase 44 Units/L (34-104); Aspartate Amino Transferase 10 Units/L (13-39); BUN/Creatinine Ratio 44 (6-26); Bilirubin,Total 0.2 mg/dL (0.3-1.0); Blood Urea Nitrogen 19 mg/dL (6-20); Calcium 8.3 mg/dL (8.6-10.3); Carbon Dioxide 28 mEq/L (23-29); Chloride 108 mEq/L (98-107); Globulin 2.4 g/dL (2.4-3.5); Glucose 133 mg/dL (70-105); Magnesium 2.3 mg/dL (1.6-2.6); Osmolality,Calculated 300 (280-300); Phosphorous 2.8 mg/dL (2.7-4.5); Sodium 143 mEq/L (136-145); Total Protein 6.1 g/dL (6.4-8.9); eGFR For African Americans > 60 (> 60); eGFR For Non-African Americans > 60 (> 60)
--- NOTE | 2019-04-02 06:49 | Pulmonology Progress Note ---
Date of Encounter: 04/02/19 Time of Encounter: 06:49 Assessment and Plan (1) Acute respiratory failure with hypoxia and hypercapnia Current Visit: Yes Status: Acute . Patient seen and examined at bedside Labs, radiology, chart personally reviewed. Management was reviewed during multidisciplinary critical care rounds. 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 Wean sedation for CPAP trial Pulm: Acute on chronic hypoxic hypercapnic respiratory failure secondary to COPD exacerbation likely mediated by a viral infection. Patient remains on the vent acceptable gas exchange today we will continue aggressive bronchodilator and systemic glucocorticoid strategy once her mental status improves can consider spontaneous breathing trial. Cards: Blood pressure monitored and stable today continue monitoring on telemetry GI: GI prophylaxis is given while on vent Nutrition: Enteral nutrition per dietary recommendations Renal: UOP Monitored, Cont to Trend sCr and monitor Electrolytes. ID: Respiratory PCR positive for entero-/Rhino virus symptomatic management of this. Switched to Rocephin for UTI will treat for 10 days Heme/Onc: DVT prophylaxis given while on vent H&H and platelets remained stable continue daily monitoring Endo: Glucose Monitored continue sliding scale insulin as needed Integ/MSK: Skin Care per routine ICU Nursing Protocol to prevent ulcers. Lines: All lines examined without evidence of infection : Dispo: Remain ICU for critical illness CODE: Full (2) Acute exacerbation of chronic obstructive airways disease Current Visit: No Status: Acute (3) Acute encephalopathy Current Visit: Yes Status: Acute (4) Urinary tract infection Current Visit: Yes Status: Acute Qualifiers: Qualified Code(s): N39.0 - Urinary tract infection, site not specified; R31.9 - Hematuria, unspecified Subjective Principal diagnosis: Respiratory Failure Interval history: Able to decrease sedation markedly although patient still is obtunded and unable to follow commands. Blood pressures been stable urine output acceptable no other events overnight Objective PUL Vital signs: Last Vital Signs Temp 97.5 F L 04/02/19 04:00 Pulse 99 04/02/19 06:00 Resp 22 04/02/19 06:00 BP 107/76 04/02/19 06:00 Pulse Ox 93 04/02/19 06:00 General appearance: other (Sedated) Eyes: nonicteric Neck: supple Auscultation: bilateral: wheezes Cardiovascular: regular rate and rhythm Gastrointestinal: normoactive bowel sounds, soft, non-tender Integumentary: normal Extremities: no edema Musculoskeletal: no deformities other (She does have spontaneous movement in all extremities without clear focal neurological deficit) other (Agitated at times) Ventilator Settings Ventilator Settings: Ventilator Settings, Last 8 Hours Ventilator Tidal Volume 480 Setting Ventilator Tidal Volume 480 Setting Ventilator Tidal Volume 480 Setting Ventilator Tidal Volume 480 Setting Ventilator Tidal Volume 480 Setting Ventilator Tidal Volume 480 Setting Ventilator Tidal Volume 480 Setting Ventilator Tidal Volume 480 Setting Ventilator Tidal Volume 480 Setting Ventilator Tidal Volume 480 Setting Ventilator Tidal Volume 480 Setting Ventilator Respiratory Rate 16 Setting Ventilator Respiratory Rate 16 Setting Ventilator Respiratory Rate 16 Setting Ventilator Respiratory Rate 16 Setting Ventilator Respiratory Rate 16 Setting Ventilator Respiratory Rate 16 Setting Ventilator Respiratory Rate 16 Setting Ventilator Respiratory Rate 16 Setting Ventilator Respiratory Rate 16 Setting Ventilator Respiratory Rate 16 Setting Ventilator Respiratory Rate 16 Setting Actual Respiratory Rate 22 Actual Respiratory Rate 16 Actual Respiratory Rate 18 Actual Respiratory Rate 16 Actual Respiratory Rate 16 Actual Respiratory Rate 17 Actual Respiratory Rate 16 Actual Respiratory Rate 16 Actual Respiratory Rate 16 Actual Respiratory Rate 16 Positive End Expiratory 5 Pressure Positive End Expiratory 5 Pressure Positive End Expiratory 5 Pressure Positive End Expiratory 5 Pressure Positive End Expiratory 5 Pressure Positive End Expiratory 5 Pressure Positive End Expiratory 5 Pressure Positive End Expiratory 5 Pressure Positive End Expiratory 5 Pressure Positive End Expiratory 5 Pressure Positive End Expiratory 5 Pressure Peak Inspiratory Airway 31 Pressure Peak Inspiratory Airway 24 Pressure Peak Inspiratory Airway 25 Pressure Peak Inspiratory Airway 22 Pressure Peak Inspiratory Airway 20 Pressure Peak Inspiratory Airway 23 Pressure Peak Inspiratory Airway 30 Pressure Peak Inspiratory Airway 28 Pressure Peak Inspiratory Airway 28 Pressure Peak Inspiratory Airway 26 Pressure Results - Laboratory Findings CBC and BMP: 04/02/19 06:09 04/02/19 06:09 ABG ABG pH 7.38 pH Units (7.32-7.45) 04/02/19 05:35 ABG pCO2 51 mmHg (35-45) H 04/02/19 05:35 ABG pO2 91 mmHg (85-104) 04/02/19 05:35 ABG O2 Saturation 97 % (95-98) 04/02/19 05:35 Abnormal lab findings: Abnormal lab results WBC 16.6 K/mcL (4.3-11.1) H 04/02/19 06:09 RDW 15.4 % (11.5-14.5) H 04/02/19 06:09 Neutrophils # 14.6 K/mcL (1.6-8.9) H 04/02/19 06:09 Lymphocytes # 0.4 K/mcL (0.6-4.6) L 03/31/19 11:41 ABG pH 7.23 pH Units (7.32-7.45) L 03/31/19 10:51 ABG pCO2 51 mmHg (35-45) H 04/02/19 05:35 ABG HCO3 30 mEq/L (21-27) H 04/02/19 05:35 ABG Total CO2 32 mEq/L (20-26) H 04/02/19 05:35 ABG O2 Saturation 91 % (95-98) L 03/31/19 04:24 ABG Base Excess 4 mEq/L (-2 to 3) H 04/02/19 05:35 Chloride 108 mEq/L (98-107) H 04/02/19 06:09 Carbon Dioxide 18 mEq/L (23-29) L 03/31/19 09:36 Creatinine 0.43 mg/dL (0.60-1.20) L 04/02/19 06:09 BUN/Creatinine Ratio 44 (6-26) H 04/02/19 06:09 Glucose 133 mg/dL (70-105) H 04/02/19 06:09 POC Glucose 138 mg/dL (70-99) H 04/02/19 05:24 Calcium 8.3 mg/dL (8.6-10.3) L 04/02/19 06:09 Total Bilirubin 0.2 mg/dL (0.3-1.0) L 04/02/19 06:09 AST 10 Units/L (13-39) L 04/02/19 06:09 Serum Total Protein 6.1 g/dL (6.4-8.9) L 04/02/19 06:09 Urine Clarity Turbid (Clear) A 03/31/19 12:52 Ur Specific [place] > 1.030 (1.010-1.025) H 03/31/19 12:52 Urine Protein 30 mg/dL (Neg-Trace) H 03/31/19 12:52 Urine Glucose (UA) 250 mg/dL (Normal) H 03/31/19 12:52 Urine Blood Moderate (Negative) H 03/31/19 12:52 Urine Bilirubin Small (Negative) H 03/31/19 12:52 Urine Microscopic RBC TNTC per hpf (0-3) H 03/31/19 12:52 Urine Microscopic WBC 5-15 per hpf (0-3) H 03/31/19 12:52 Ur Squamous Epith Cells Many per lpf (None-Few) H 03/31/19 12:52 Ur Buprenorphine Scrn Positive ng/mL (Cutoff=5) H 03/31/19 12:57 U Benzodiazepines Scrn Positive ng/mL (Vcpeue=268) H 03/31/19 12:57 Entero/Rhino (PCR) DETECTED (Not Detect) A 03/31/19 17:08 - Microbiology Findings Microbiology Findings: Microbiology, Last 48 Hours 03/31/19 07:53 Sputum Culture - Preliminary Aspirate 03/31/19 12:57 Urine Culture - Preliminary Urine,[place] Culture is incubating. 03/31/19 12:57 Legionella Antigen - Final Urine,Catheterized (Straight) Streptococcus pneumoniae Antigen (M - Final - Clinical Findings Intake & Output: Intake & Output 04/01/19 04/01/19 04/02/19 15:59 23:59 07:59 Intake Total 360 / 2114 1014 / 2114 300 / 300 Output Total 520 / 1895 250 / 1895 600 / 600 Balance -160 / 219 764 / 219 -300 / -300 Weight 69.7 kg - VTE Documentation of Mechanical Device: Intermittent pneumatic compression device Consult Discharge Plan - Plan Referrals: NONE,PCP [Primary Care Provider] -
[2019-04-02] MEDS: Budesonide/Formoterol 80/4.5 1 PUFF INH IH SCH ×2 (07:28→19:23)
[2019-04-02] MEDS: Chlorhexidine Rinse 15 ML MOUTHWASH MM SCH ×2 (08:22→16:00)
[2019-04-02] MEDS: Pantoprazole 40 MG VIAL IVP SCH (08:22)
[2019-04-02] MEDS: Dexmedetomidine HCl 400 MCG/100 ML MLS IVC SCH ×3 (08:46→23:00)
[2019-04-02] MEDS: cefTRIAXone 1,000 MG in Water for inj. (sterile) 10 ML IVP SCH (21:58)
[2019-04-02] MEDS: Azithromycin 500 MG in 0.9 % Sodium Chloride 250 ML IVPB SCH (23:10)
[2019-04-03] MEDS: Artificial Tears SOLN 15 ML BOTTLE BOTH EYES SCH ×5 (03:35→19:53)
[2019-04-03 03:40] LABS: Basophils % 0.2 %; Hematocrit 39.6 % (35.3-44.9); Hemoglobin 12.5 g/dL (11.5-15.4); Immature Granulocytes % 1.8 % (0-4); Lymphocytes # 0.8 K/mcL (0.6-4.6); Lymphocytes % 7.5 %; Mean Corpuscular HGB Conc 31.6 g/dL (31.6-35.5); Mean Corpuscular Hemoglobin 30.6 pg (28.0-33.3); Mean Corpuscular Volume 97.1 fL (83.0-100.0); Monocytes # 0.4 K/mcL (0.0-1.3); Monocytes % 3.9 %; Neutrophils # 9.4 K/mcL (1.6-8.9); Platelet Count 212 K/mcL (140-400); Red Blood Count 4.08 M/mcL (3.82-4.97); Red Cell Distribution Width 14.7 % (11.5-14.5); Segmented Neutrophils % 86.6 %; White Blood Count 10.8 K/mcL (4.3-11.1)
[2019-04-03 04:01] LABS: Alanine Aminotransferase 14 Units/L (7-52); Albumin 3.6 g/dL (3.5-5.7); Albumin/Globulin Ratio 1.4 (1.1-2.2); Alkaline Phosphatase 38 Units/L (34-104); Aspartate Amino Transferase 10 Units/L (13-39); BUN/Creatinine Ratio 47 (6-26); Bilirubin,Total 0.2 mg/dL (0.3-1.0); Blood Urea Nitrogen 21 mg/dL (6-20); Calcium 8.3 mg/dL (8.6-10.3); Carbon Dioxide 25 mEq/L (23-29); Chloride 110 mEq/L (98-107); Globulin 2.6 g/dL (2.4-3.5); Glucose 168 mg/dL (70-105); Magnesium 2.2 mg/dL (1.6-2.6); Osmolality,Calculated 303 (280-300); Potassium 4.4 mEq/L (3.5-5.1); Sodium 143 mEq/L (136-145); Total Protein 6.2 g/dL (6.4-8.9); eGFR For African Americans > 60 (> 60); eGFR For Non-African Americans > 60 (> 60)
[2019-04-03] MEDS: Ipratropium/Albuterol Neb 3 ML IH SCH ×5 (04:03→20:27)
[2019-04-03 04:52] LABS: ABG Base Excess 6 mEq/L (-2 to 3); ABG HCO3 32 mEq/L (21-27); ABG Oxygen Saturation 97 % (95-98); ABG PCO2 50 mmHg (35-45); ABG PH 7.41 pH Units (7.32-7.45); ABG PO2 88 mmHg (85-104); ABG TCO2 33 mEq/L (20-26); Blood Gas Modality ASSIST CONTROL; Blood Gas PEEP 5 cm H2O; Blood Gas VT 480 cc
[2019-04-03] MEDS: Dexmedetomidine HCl 400 MCG/100 ML MLS IVC SCH ×4 (04:58→23:55)
[2019-04-03] MEDS: methylPREDNISolone 125 MG/2 ML VIAL IVP SCH ×2 (05:19→18:23)
[2019-04-03] MEDS: *HR* Heparin 5,000 UNIT/ML VIAL SQ SCH ×2 (05:19→18:22)
[2019-04-03] MEDS: Budesonide/Formoterol 80/4.5 1 PUFF INH IH SCH ×2 (07:45→20:27)
[2019-04-03] MEDS: Chlorhexidine Rinse 15 ML MOUTHWASH MM SCH ×2 (09:54→19:53)
[2019-04-03] MEDS: Pantoprazole 40 MG VIAL IVP SCH (09:55)
--- NOTE | 2019-04-03 11:04 | Pulmonology Progress Note ---
Date of Encounter: 04/03/19 Time of Encounter: 07:00 Assessment and Plan (1) Acute respiratory failure with hypoxia and hypercapnia Current Visit: Yes Status: Acute . Patient seen and examined at bedside Labs, radiology, chart personally reviewed. Management was reviewed during multidisciplinary critical care rounds. 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 Wean sedation for CPAP trial. Will send for head CT to rule out acute HEMODIALYSIS TECHNICIAN proces Pulm: Acute on chronic hypoxic hypercapnic respiratory failure secondary to COPD exacerbation likely mediated by a viral infection. Patient remains on the vent acceptable gas exchange today we will continue aggressive bronchodilator and systemic glucocorticoid strategy once her mental status improves can consider spontaneous breathing trial. Cards: Blood pressure monitored and stable today continue monitoring on telemetry GI: GI prophylaxis is given while on vent Nutrition: Enteral nutrition per dietary recommendations Renal: UOP Monitored, Cont to Trend sCr and monitor Electrolytes. ID: Respiratory PCR positive for entero-/Rhino virus symptomatic management of this. Switched to Rocephin for UTI will treat for 10 days Heme/Onc: DVT prophylaxis given while on vent H&H and platelets remained stable continue daily monitoring Endo: Glucose Monitored continue sliding scale insulin as needed Integ/MSK: Skin Care per routine ICU Nursing Protocol to prevent ulcers. Lines: All lines examined without evidence of infection : Dispo: Remain ICU for critical illness CODE: Full (2) Acute exacerbation of chronic obstructive airways disease Current Visit: No Status: Acute (3) Acute encephalopathy Current Visit: Yes Status: Acute (4) Urinary tract infection Current Visit: Yes Status: Acute Qualifiers: Qualified Code(s): N39.0 - Urinary tract infection, site not specified; R31.9 - Hematuria, unspecified Subjective Principal diagnosis: Respiratory Failure Interval history: Unfortunately when patient's sedation is lifted she displays severe hyperactive delirium and she quickly has to be re-sedated because she breathes in the 50s. No other change clinically blood pressure stable Objective PUL Vital signs: Last Vital Signs Temp 98.3 F 04/03/19 03:54 Pulse 72 04/03/19 10:00 Resp 19 04/03/19 10:00 BP 137/87 04/03/19 10:00 Pulse Ox 96 04/03/19 10:00 GEN: Sedated on vent she is unable to follow commands when sedation is lifted per nursing report all extremities have been moved there is no deficit HEENT: Pupils reactive to light bilaterally Resp: Bilateral breath sounds she has faint expiratory wheezes Cardio: Heart sounds audible no murmur regular rhythm GI: Abdomen is soft nondistended no grimace to deep palpation Ext: Trace lower extremity edema, pulses are easily palpable in all extremities Skin: No rash or purpura Neuro: Unable to assess because of sedation Psych: Calm on vent currently Ventilator Settings Ventilator Settings: Ventilator Settings, Last 8 Hours Ventilator Tidal Volume 480 Setting Ventilator Tidal Volume 480 Setting Ventilator Tidal Volume 480 Setting Ventilator Tidal Volume 480 Setting Ventilator Tidal Volume 480 Setting Ventilator Tidal Volume 480 Setting Ventilator Tidal Volume 480 Setting Ventilator Tidal Volume 480 Setting Ventilator Tidal Volume 480 Setting Ventilator Tidal Volume 480 Setting Ventilator Respiratory Rate 16 Setting Ventilator Respiratory Rate 16 Setting Ventilator Respiratory Rate 16 Setting Ventilator Respiratory Rate 16 Setting Ventilator Respiratory Rate 16 Setting Ventilator Respiratory Rate 16 Setting Ventilator Respiratory Rate 16 Setting Ventilator Respiratory Rate 16 Setting Ventilator Respiratory Rate 16 Setting Ventilator Respiratory Rate 16 Setting Actual Respiratory Rate 20 Actual Respiratory Rate 20 Actual Respiratory Rate 18 Actual Respiratory Rate 20 Actual Respiratory Rate 24 Actual Respiratory Rate 20 Actual Respiratory Rate 21 Actual Respiratory Rate 20 Actual Respiratory Rate 20 Positive End Expiratory 5 Pressure Positive End Expiratory 5 Pressure Positive End Expiratory 5 Pressure Positive End Expiratory 5 Pressure Positive End Expiratory 5 Pressure Positive End Expiratory 5 Pressure Positive End Expiratory 5 Pressure Positive End Expiratory 5 Pressure Positive End Expiratory 5 Pressure Positive End Expiratory 5 Pressure Peak Inspiratory Airway 22 Pressure Peak Inspiratory Airway 23 Pressure Peak Inspiratory Airway 22 Pressure Peak Inspiratory Airway 29 Pressure Peak Inspiratory Airway 28 Pressure Peak Inspiratory Airway 40 Pressure Peak Inspiratory Airway 27 Pressure Peak Inspiratory Airway 28 Pressure Peak Inspiratory Airway 28 Pressure Results - Laboratory Findings CBC and BMP: 04/03/19 03:28 04/03/19 03:28 ABG ABG pH 7.41 pH Units (7.32-7.45) 04/03/19 04:49 ABG pCO2 50 mmHg (35-45) H 04/03/19 04:49 ABG pO2 88 mmHg (85-104) 04/03/19 04:49 ABG O2 Saturation 97 % (95-98) 04/03/19 04:49 Abnormal lab findings: Abnormal lab results WBC 16.6 K/mcL (4.3-11.1) H 04/02/19 06:09 RDW 14.7 % (11.5-14.5) H 04/03/19 03:28 Neutrophils # 9.4 K/mcL (1.6-8.9) H 04/03/19 03:28 Lymphocytes # 0.4 K/mcL (0.6-4.6) L 03/31/19 11:41 ABG pH 7.23 pH Units (7.32-7.45) L 03/31/19 10:51 ABG pCO2 50 mmHg (35-45) H 04/03/19 04:49 ABG HCO3 32 mEq/L (21-27) H 04/03/19 04:49 ABG Total CO2 33 mEq/L (20-26) H 04/03/19 04:49 ABG O2 Saturation 91 % (95-98) L 03/31/19 04:24 ABG Base Excess 6 mEq/L (-2 to 3) H 04/03/19 04:49 Chloride 110 mEq/L (98-107) H 04/03/19 03:28 Carbon Dioxide 18 mEq/L (23-29) L 03/31/19 09:36 BUN 21 mg/dL (6-20) H 04/03/19 03:28 Creatinine 0.45 mg/dL (0.60-1.20) L 04/03/19 03:28 BUN/Creatinine Ratio 47 (6-26) H 04/03/19 03:28 Glucose 168 mg/dL (70-105) H 04/03/19 03:28 POC Glucose 149 mg/dL (70-99) H 04/03/19 05:52 Calculated Osmolality 303 (280-300) H 04/03/19 03:28 Calcium 8.3 mg/dL (8.6-10.3) L 04/03/19 03:28 Total Bilirubin 0.2 mg/dL (0.3-1.0) L 04/03/19 03:28 AST 10 Units/L (13-39) L 04/03/19 03:28 Serum Total Protein 6.2 g/dL (6.4-8.9) L 04/03/19 03:28 Urine Clarity Turbid (Clear) A 03/31/19 12:52 Ur Specific [place] > 1.030 (1.010-1.025) H 03/31/19 12:52 Urine Protein 30 mg/dL (Neg-Trace) H 03/31/19 12:52 Urine Glucose (UA) 250 mg/dL (Normal) H 03/31/19 12:52 Urine Blood Moderate (Negative) H 03/31/19 12:52 Urine Bilirubin Small (Negative) H 03/31/19 12:52 Urine Microscopic RBC TNTC per hpf (0-3) H 03/31/19 12:52 Urine Microscopic WBC 5-15 per hpf (0-3) H 03/31/19 12:52 Ur Squamous Epith Cells Many per lpf (None-Few) H 03/31/19 12:52 Ur Buprenorphine Scrn Positive ng/mL (Cutoff=5) H 03/31/19 12:57 U Benzodiazepines Scrn Positive ng/mL (Gfdwut=051) H 03/31/19 12:57 Entero/Rhino (PCR) DETECTED (Not Detect) A 03/31/19 17:08 - Microbiology Findings Microbiology Findings: Microbiology, Last 48 Hours 03/31/19 12:57 Urine Culture - Final Urine,[place] No growth. 03/31/19 07:53 Sputum Culture - Preliminary Aspirate - Clinical Findings Intake & Output: Intake & Output 04/02/19 04/03/19 04/03/19 23:59 07:59 15:59 Intake Total 1189 / 1869 893 / 915 5 Output Total 150 / 1850 700 / 700 Balance 1038 193 / 215 Weight 68.8 kg - VTE Documentation of Mechanical Device: Intermittent pneumatic compression device Consult Discharge Plan - Plan Referrals: NONE,PCP [Primary Care Provider] -
[2019-04-03] MEDS: FentaNYL (PF) 1,000 MCG in 0.9 % Sodium Chloride 80 ML IVC SCH (19:36)
[2019-04-03] MEDS: cefTRIAXone 1,000 MG in Water for inj. (sterile) 10 ML IVP SCH (22:05)
[2019-04-03] MEDS: Azithromycin 500 MG in 0.9 % Sodium Chloride 250 ML IVPB SCH (22:05)
[2019-04-04] MEDS: Artificial Tears SOLN 15 ML BOTTLE BOTH EYES SCH ×7 (00:03→23:33)
[2019-04-04] MEDS: Ipratropium/Albuterol Neb 3 ML IH SCH ×7 (00:29→23:25)
[2019-04-04] MEDS: Dexmedetomidine HCl 400 MCG/100 ML MLS IVC SCH ×4 (04:39→22:05)
[2019-04-04] MEDS: *HR* Heparin 5,000 UNIT/ML VIAL SQ SCH ×2 (04:58→17:59)
[2019-04-04] MEDS: methylPREDNISolone 125 MG/2 ML VIAL IVP SCH ×2 (04:59→17:59)
[2019-04-04 05:18] LABS: Basophils % 0.2 %; Hematocrit 40.9 % (35.3-44.9); Hemoglobin 12.9 g/dL (11.5-15.4); Lymphocytes # 1.3 K/mcL (0.6-4.6); Lymphocytes % 11.8 %; Mean Corpuscular HGB Conc 31.5 g/dL (31.6-35.5); Mean Corpuscular Hemoglobin 30.1 pg (28.0-33.3); Mean Corpuscular Volume 95.3 fL (83.0-100.0); Mean Platelet Volume 12.2 fL (9.4-12.4); Monocytes # 0.5 K/mcL (0.0-1.3); Monocytes % 4.4 %; Neutrophils # 9.1 K/mcL (1.6-8.9); Platelet Count 221 K/mcL (140-400); Red Blood Count 4.29 M/mcL (3.82-4.97); Red Cell Distribution Width 14.5 % (11.5-14.5); Segmented Neutrophils % 81.6 %; White Blood Count 11.2 K/mcL (4.3-11.1)
[2019-04-04 05:27] LABS: ABG Base Excess 2 mEq/L (-2 to 3); ABG HCO3 28 mEq/L (21-27); ABG Oxygen Saturation 92 % (95-98); ABG PCO2 49 mmHg (35-45); ABG PH 7.37 pH Units (7.32-7.45); ABG PO2 66 mmHg (85-104); ABG TCO2 30 mEq/L (20-26); Blood Gas Modality ASSIST CONTROL
[2019-04-04 05:30] LABS: Alanine Aminotransferase 16 Units/L (7-52); Albumin 3.6 g/dL (3.5-5.7); Albumin/Globulin Ratio 1.4 (1.1-2.2); Alkaline Phosphatase 38 Units/L (34-104); Aspartate Amino Transferase 11 Units/L (13-39); BUN/Creatinine Ratio 43 (6-26); Bilirubin,Total 0.2 mg/dL (0.3-1.0); Blood Urea Nitrogen 19 mg/dL (6-20); Calcium 8.5 mg/dL (8.6-10.3); Carbon Dioxide 23 mEq/L (23-29); Chloride 108 mEq/L (98-107); Globulin 2.6 g/dL (2.4-3.5); Glucose 179 mg/dL (70-105); Magnesium 2.1 mg/dL (1.6-2.6); Osmolality,Calculated 297 (280-300); Phosphorous 2.7 mg/dL (2.7-4.5); Potassium 4.3 mEq/L (3.5-5.1); Sodium 140 mEq/L (136-145); Total Protein 6.2 g/dL (6.4-8.9); eGFR For African Americans > 60 (> 60); eGFR For Non-African Americans > 60 (> 60)
[2019-04-04] MEDS: Budesonide/Formoterol 80/4.5 1 PUFF INH IH SCH ×2 (08:01→19:42)
[2019-04-04] MEDS: Pantoprazole 40 MG VIAL IVP SCH (09:28)
[2019-04-04] MEDS: Chlorhexidine Rinse 15 ML MOUTHWASH MM SCH ×2 (09:28→20:14)
[2019-04-04] MEDS: FentaNYL (PF) 1,000 MCG in 0.9 % Sodium Chloride 80 ML IVC SCH ×2 (11:22→23:32)
--- NOTE | 2019-04-04 13:32 | Pulmonology Progress Note ---
Date of Encounter: 04/04/19 Time of Encounter: 09:00 Assessment and Plan (1) Acute respiratory failure with hypoxia and hypercapnia Current Visit: Yes Status: Acute Patient presented with acute hypoxic and hypercapnic respiratory failure complicated by substance abuse and also hypoventilation, V/Q mismatch by her COPD. Patient is on mechanical ventilation low tidal volume strategy adjusted the minute ventilation attempted spontaneous breathing trial patient agitated causing ventilator asynchrony. Is going to be a challenge in liberating from mechanical ventilation. (2) Acute encephalopathy Current Visit: Yes Status: Acute Patient acute encephalopathy most likely due to polysubstance abuse and most likely baseline anxiety disorder contributing to the current picture will add fentanyl try to liberate the midazolam drip. Will add the antipsychotic most likely atypical antipsychotic like the quetiapine . Before adding the medication we will check QT prolongation. (3) Acute exacerbation of chronic obstructive airways disease Current Visit: No Status: Acute Patient has viral exacerbation of COPD to continue bronchodilators and steroids patient did not do well in responders breathing trial contributed due to agitated delirium causing ventilator asynchrony. Will slowly add antipsychotics and we will reevaluate. (4) DVT prophylaxis Current Visit: Yes Status: Acute To continue heparin Subjective Principal diagnosis: Respiratory Failure Interval history: Patient did not have any acute events overnight. Patient did not do well in responders breathing trial because of agitation causing ventilator asynchrony worsening have V/Q mismatch. Patient continued to be on high sedation for his agitated delirium. Objective PUL Vital signs: Last Vital Signs Temp 98.9 F 04/04/19 12:05 Pulse 95 04/04/19 13:00 Resp 24 04/04/19 13:21 BP 121/84 04/04/19 13:21 Pulse Ox 95 04/04/19 13:21 General appearance: no acute distress Eyes: nonicteric ENT: oropharynx moist Auscultation: bilateral: diminished breath sounds, wheezes (Minimal scattered wheezes) Cardiovascular: regular rate and rhythm Gastrointestinal: normoactive bowel sounds Extremities: no cyanosis, no edema unable to assess due to mental status Ventilator Settings Ventilator Settings: Ventilator Settings, Last 8 Hours Ventilator Tidal Volume 480 Setting Ventilator Tidal Volume 480 Setting Ventilator Tidal Volume 480 Setting Ventilator Tidal Volume 480 Setting Ventilator Tidal Volume 480 Setting Ventilator Tidal Volume 480 Setting Ventilator Tidal Volume 480 Setting Ventilator Tidal Volume 480 Setting Ventilator Tidal Volume 480 Setting Ventilator Tidal Volume 480 Setting Ventilator Tidal Volume 480 Setting Ventilator Tidal Volume 480 Setting Ventilator Tidal Volume 480 Setting Ventilator Respiratory Rate 16 Setting Ventilator Respiratory Rate 16 Setting Ventilator Respiratory Rate 16 Setting Ventilator Respiratory Rate 16 Setting Ventilator Respiratory Rate 16 Setting Ventilator Respiratory Rate 16 Setting Ventilator Respiratory Rate 16 Setting Ventilator Respiratory Rate 16 Setting Ventilator Respiratory Rate 16 Setting Ventilator Respiratory Rate 16 Setting Ventilator Respiratory Rate 16 Setting Ventilator Respiratory Rate 16 Setting Ventilator Respiratory Rate 16 Setting Actual Respiratory Rate 24 Actual Respiratory Rate 24 Actual Respiratory Rate 26 Actual Respiratory Rate 26 Actual Respiratory Rate 28 Actual Respiratory Rate 30 Actual Respiratory Rate 27 Actual Respiratory Rate 32 Actual Respiratory Rate 26 Actual Respiratory Rate 28 Actual Respiratory Rate 32 Actual Respiratory Rate 30 Actual Respiratory Rate 28 Positive End Expiratory 5 Pressure Positive End Expiratory 5 Pressure Positive End Expiratory 5 Pressure Positive End Expiratory 5 Pressure Positive End Expiratory 5 Pressure Positive End Expiratory 5 Pressure Positive End Expiratory 5 Pressure Positive End Expiratory 5 Pressure Positive End Expiratory 5 Pressure Positive End Expiratory 5 Pressure Positive End Expiratory 5 Pressure Positive End Expiratory 5 Pressure Positive End Expiratory 5 Pressure Peak Inspiratory Airway 21 Pressure Peak Inspiratory Airway 21 Pressure Peak Inspiratory Airway 23 Pressure Peak Inspiratory Airway 24 Pressure Peak Inspiratory Airway 23 Pressure Peak Inspiratory Airway 23 Pressure Peak Inspiratory Airway 21 Pressure Peak Inspiratory Airway 26 Pressure Peak Inspiratory Airway 24 Pressure Peak Inspiratory Airway 25 Pressure Peak Inspiratory Airway 26 Pressure Peak Inspiratory Airway 36 Pressure Peak Inspiratory Airway 28 Pressure Results - Laboratory Findings CBC and BMP: 04/04/19 04:32 04/04/19 04:32 ABG ABG pH 7.37 pH Units (7.32-7.45) 04/04/19 05:23 ABG pCO2 49 mmHg (35-45) H 04/04/19 05:23 ABG pO2 66 mmHg (85-104) L 04/04/19 05:23 ABG O2 Saturation 92 % (95-98) L 04/04/19 05:23 Abnormal lab findings: Abnormal lab results WBC 11.2 K/mcL (4.3-11.1) H 04/04/19 04:32 MCHC 31.5 g/dL (31.6-35.5) L 04/04/19 04:32 RDW 14.7 % (11.5-14.5) H 04/03/19 03:28 Neutrophils # 9.1 K/mcL (1.6-8.9) H 04/04/19 04:32 Lymphocytes # 0.4 K/mcL (0.6-4.6) L 03/31/19 11:41 ABG pH 7.23 pH Units (7.32-7.45) L 03/31/19 10:51 ABG pCO2 49 mmHg (35-45) H 04/04/19 05:23 ABG pO2 66 mmHg (85-104) L 04/04/19 05:23 ABG HCO3 28 mEq/L (21-27) H 04/04/19 05:23 ABG Total CO2 30 mEq/L (20-26) H 04/04/19 05:23 ABG O2 Saturation 92 % (95-98) L 04/04/19 05:23 ABG Base Excess 6 mEq/L (-2 to 3) H 04/03/19 04:49 Chloride 108 mEq/L (98-107) H 04/04/19 04:32 Carbon Dioxide 18 mEq/L (23-29) L 03/31/19 09:36 BUN 21 mg/dL (6-20) H 04/03/19 03:28 Creatinine 0.44 mg/dL (0.60-1.20) L 04/04/19 04:32 BUN/Creatinine Ratio 43 (6-26) H 04/04/19 04:32 Glucose 179 mg/dL (70-105) H 04/04/19 04:32 POC Glucose 214 mg/dL (70-99) H 04/04/19 11:36 Calculated Osmolality 303 (280-300) H 04/03/19 03:28 Calcium 8.5 mg/dL (8.6-10.3) L 04/04/19 04:32 Total Bilirubin 0.2 mg/dL (0.3-1.0) L 04/04/19 04:32 AST 11 Units/L (13-39) L 04/04/19 04:32 Serum Total Protein 6.2 g/dL (6.4-8.9) L 04/04/19 04:32 Urine Clarity Turbid (Clear) A 03/31/19 12:52 Ur Specific [place] > 1.030 (1.010-1.025) H 03/31/19 12:52 Urine Protein 30 mg/dL (Neg-Trace) H 03/31/19 12:52 Urine Glucose (UA) 250 mg/dL (Normal) H 03/31/19 12:52 Urine Blood Moderate (Negative) H 03/31/19 12:52 Urine Bilirubin Small (Negative) H 03/31/19 12:52 Urine Microscopic RBC TNTC per hpf (0-3) H 03/31/19 12:52 Urine Microscopic WBC 5-15 per hpf (0-3) H 03/31/19 12:52 Ur Squamous Epith Cells Many per lpf (None-Few) H 03/31/19 12:52 Ur Buprenorphine Scrn Positive ng/mL (Cutoff=5) H 03/31/19 12:57 U Benzodiazepines Scrn Positive ng/mL (Ovwdsd=433) H 03/31/19 12:57 Entero/Rhino (PCR) DETECTED (Not Detect) A 03/31/19 17:08 - Microbiology Findings Microbiology Findings: Microbiology, Last 48 Hours 03/31/19 07:53 Sputum Culture - Final Aspirate - Clinical Findings Intake & Output: Intake & Output 04/03/19 04/04/19 04/04/19 23:59 07:59 15:59 Intake Total 1507 / 2891 650 / 1010 360 / 1010 Output Total 340 / 2140 2300 / 2950 650 / 2950 Balance 1167 / 751 -1650 / -1940 -290 / -1940 Weight 68 kg - VTE Documentation of Mechanical Device: Intermittent pneumatic compression device Consult Discharge Plan - Plan Referrals: NONE,PCP [Primary Care Provider] -
[2019-04-05] MEDS: Ipratropium/Albuterol Neb 3 ML IH SCH ×6 (03:20→23:16)
[2019-04-05] MEDS: Dexmedetomidine HCl 400 MCG/100 ML MLS IVC SCH ×4 (03:50→20:47)
[2019-04-05 04:42] LABS: Basophils % 0.4 %; Hematocrit 43.3 % (35.3-44.9); Hemoglobin 13.9 g/dL (11.5-15.4); Immature Granulocytes % 2.4 % (0-4); Lymphocytes # 1.7 K/mcL (0.6-4.6); Lymphocytes % 15.1 %; Mean Corpuscular HGB Conc 32.1 g/dL (31.6-35.5); Mean Corpuscular Volume 93.3 fL (83.0-100.0); Mean Platelet Volume 11.3 fL (9.4-12.4); Monocytes # 0.6 K/mcL (0.0-1.3); Monocytes % 4.9 %; Neutrophils # 8.6 K/mcL (1.6-8.9); Platelet Count 221 K/mcL (140-400); Red Blood Count 4.64 M/mcL (3.82-4.97); Red Cell Distribution Width 14.5 % (11.5-14.5); Segmented Neutrophils % 77.2 %; White Blood Count 11.2 K/mcL (4.3-11.1)
[2019-04-05 04:42] LABS: ABG Base Excess 4 mEq/L (-2 to 3); ABG HCO3 29 mEq/L (21-27); ABG Oxygen Saturation 91 % (95-98); ABG PCO2 45 mmHg (35-45); ABG PH 7.42 pH Units (7.32-7.45); ABG PO2 61 mmHg (85-104); ABG TCO2 31 mEq/L (20-26); Blood Gas Modality VC; Blood Gas PEEP 5 cm H2O; Blood Gas VT 480 cc
[2019-04-05 04:57] LABS: BUN/Creatinine Ratio 50 (6-26); Blood Urea Nitrogen 22 mg/dL (6-20); Carbon Dioxide 27 mEq/L (23-29); Chloride 105 mEq/L (98-107); Glucose 159 mg/dL (70-105); Osmolality,Calculated 297 (280-300); Potassium 4.3 mEq/L (3.5-5.1); Sodium 140 mEq/L (136-145); eGFR For African Americans > 60 (> 60); eGFR For Non-African Americans > 60 (> 60)
[2019-04-05] MEDS: methylPREDNISolone 125 MG/2 ML VIAL IVP SCH (05:13)
[2019-04-05] MEDS: *HR* Heparin 5,000 UNIT/ML VIAL SQ SCH ×2 (05:14→18:04)
[2019-04-05] MEDS: Artificial Tears SOLN 15 ML BOTTLE BOTH EYES SCH ×5 (05:16→20:19)
[2019-04-05] MEDS: Budesonide/Formoterol 80/4.5 1 PUFF INH IH SCH ×2 (07:50→19:48)
[2019-04-05] MEDS: Chlorhexidine Rinse 15 ML MOUTHWASH MM SCH ×2 (07:55→20:28)
[2019-04-05] MEDS: Pantoprazole 40 MG VIAL IVP SCH (07:55)
[2019-04-05] MEDS: FentaNYL (PF) 1,000 MCG in 0.9 % Sodium Chloride 80 ML IVC SCH ×2 (09:51→20:00)
[2019-04-05] MEDS ORDERED: Haloperidol Lactate 5 MG/ML VIAL IVP PRN (11:17)
[2019-04-05] MEDS ORDERED: Thiamine (B-1) 100 MG, Folic Acid 1 MG in 0.9 % Sodium Chloride 100 ML IVPB ONE (11:22)
[2019-04-05] MEDS ORDERED: Folic Acid 1 MG in 0.9 % Sodium Chloride 50 ML IVPB ONE (11:22)
--- NOTE | 2019-04-05 12:10 | Internal Med Progress Note ---
Hospitalist Progress Note - Encounter Date of Encounter: 04/05/19 Time of Encounter: 12:05 - Subjective Interval History: This is a 54-year-old female with a past medical history of CHF, COPD, ongoing tobacco abuse admitted to our facility on 03/31/2019. She was initially in respiratory distress requiring BiPAP, however she continued to worsen and was ultimately intubated. Initial blood gas showed a pH of 7.28, PCO2 of 49. Patient is currently day #6 above ventilatory support. He was some question of substance abuse that she did test positive for Suboxone, but we cannot verify. Patient also has a history of baseline anxiety disorder. She is currently showing improvement and we are attempting spontaneous breathing trial today. No evidence of infection. We have added Seroquel to her regimen as well as when necessary hydralazine for her encephalopathy, documented psychosis. A review of systems is currently unobtainable. - Exam Vitals: Temp Pulse Resp BP Pulse Ox 99.1 F 81 25 117/82 91 04/05/19 07:48 04/05/19 11:55 04/05/19 11:34 04/05/19 11:00 04/05/19 11:34 Exam: General: Resting quietly, no acute distress, sedated Skin is pale, warm and dry no rash Oropharynx moist Neck is supple Lungs show diminished breath sounds at the bases otherwise clear, scant wheeze Heart regular rate and rhythm Abdomen is soft nontender nondistended with normoactive bowel sounds X-ray show no edema, capillary refill less than 2.5 second Neurogical exam grossly nonfocal - Assessment and Plan (1) Acute respiratory failure with hypoxia and hypercapnia Current Visit: Yes Status: Acute Assessment and Plan: Likely due to COPD exacerbation Slowly improving we are going to attempt spontaneous breathing trial today (2) Acute encephalopathy Current Visit: Yes Status: Acute Assessment and Plan: She is now on Seroquel and when necessary Haldol -monitor QT interval (3) Acute exacerbation of chronic obstructive airways disease Current Visit: No Status: Acute Assessment and Plan: Aggressive bronchodilator therapy, steroid taper, monitor (4) DVT prophylaxis Current Visit: Yes Status: Acute Assessment and Plan: Subcutaneous heparin (5) Hypokalemia Current Visit: No Status: Resolved Assessment and Plan: Resolved, replace as needed (6) Tobacco abuse Current Visit: Yes Status: Acute Assessment and Plan: Future counseling - Time Spent with Patient Total time spent is greater than 50% in coordination of care (as documented) at patient's floor/unit and/or counseling patient: Greater than 35 minutes Internal Medicine: Result - Labs CBC & Chem 7: 04/05/19 04:24 04/05/19 04:24 Labs: Short CBC 04/05/19 Range/Units 04:24 WBC 11.2 H (4.3-11.1) K/mcL Hgb 13.9 (11.5-15.4) g/dL Hct 43.3 (35.3-44.9) % Plt Count 221 (140-400) K/mcL Neutrophils # 8.6 (1.6-8.9) K/mcL BMP 04/05/19 04:24 Sodium 140 Potassium 4.3 Chloride 105 Carbon Dioxide 27 BUN 22 H Creatinine 0.44 L Glucose 159 H Calcium 9.0 - ABG Interpretation ABG results: ABG ABG pH 7.42 pH Units (7.32-7.45) 04/05/19 04:39 ABG pCO2 45 mmHg (35-45) 04/05/19 04:39 ABG pO2 61 mmHg (85-104) L 04/05/19 04:39 ABG O2 Saturation 91 % (95-98) L 04/05/19 04:39 - VTE Documentation of Mechanical Device: Intermittent pneumatic compression device Consult Discharge Plan - Plan Referrals: NONE,PCP [Primary Care Provider] -
[2019-04-05 13:13] LABS: ABG Base Excess -6 mEq/L (-2 to 3); ABG HCO3 22 mEq/L (21-27); ABG Oxygen Saturation 95 % (95-98); ABG PCO2 53 mmHg (35-45); ABG PH 7.24 pH Units (7.32-7.45); ABG PO2 91 mmHg (85-104); ABG TCO2 24 mEq/L (20-26)
[2019-04-05 13:14] LABS: Blood Gas Modality ASSIST CONTROL; Blood Gas PEEP 5 cm H2O; Blood Gas VT 500 cc
--- NOTE | 2019-04-05 14:38 | Pulmonology Progress Note ---
<Merritt Elder S - Last Filed: 04/05/19 18:40> Date of Encounter: 04/05/19 Time of Encounter: 09:00 Assessment and Plan (1) Acute respiratory failure with hypoxia and hypercapnia Current Visit: Yes Status: Acute Patient intubated 03/31 for inability to tolerate BiPAP Added fentanyl 2 help patient wean off Midazolam drip yesterday ABG today showed improved pH, PCO2, bicarbonate. PCO2 fell from 66 to 61 Trials to wean sedatives have resulted repeatedly in patient agitation * Continue to try weaning sedatives * Repeat SBT in the morning * Repeat ABG in the morning * (2) Acute encephalopathy Current Visit: Yes Status: Acute Neurological status difficult to assess as patient is intubated and sedated. * EEG ordered for today * Continue to try weaning off ventilator * Increase Seroquel to 100 * PRN Haldol 5mg every 6hours * Check ammonia level * Replenished thiamine and folate * Decreased steroid to 40 mg daily Subjective Principal diagnosis: Respiratory Failure Interval history: Patient is intubated and sedated. Day 6 on the ventilator. No significant events overnight per nursing. Objective PUL Vital signs: Last Vital Signs Temp 98.9 F 04/05/19 12:07 Pulse 88 04/05/19 14:05 Resp 27 04/05/19 14:05 BP 109/75 04/05/19 14:05 Pulse Ox 91 04/05/19 14:05 General appearance: other (Pharmacologically sedated) Effort: other (Patient on CPAP trial on exam, respiratory rate of approximately 20, peak pressure 11) Auscultation: right: diminished breath sounds (Slightly diminished), bilateral: rhonchi (Mild) Cardiovascular: regular rate and rhythm Gastrointestinal: soft Integumentary: normal Extremities: no cyanosis, no edema, no clubbing unable to assess due to mental status Ventilator Settings Ventilator Settings: Ventilator Settings, Last 8 Hours Ventilator Tidal Volume 480 Setting Ventilator Tidal Volume 480 Setting Ventilator Tidal Volume 480 Setting Ventilator Tidal Volume 480 Setting Ventilator Respiratory Rate 16 Setting Ventilator Respiratory Rate 16 Setting Ventilator Respiratory Rate 16 Setting Ventilator Respiratory Rate 16 Setting Actual Respiratory Rate 27 Actual Respiratory Rate 44 Actual Respiratory Rate 23 Actual Respiratory Rate 26 Actual Respiratory Rate 25 Actual Respiratory Rate 25 Actual Respiratory Rate 22 Actual Respiratory Rate 24 Actual Respiratory Rate 21 Actual Respiratory Rate 24 Actual Respiratory Rate 20 Actual Respiratory Rate 19 Positive End Expiratory 5 Pressure Positive End Expiratory 5 Pressure Positive End Expiratory 5 Pressure Positive End Expiratory 5 Pressure Positive End Expiratory 5 Pressure Positive End Expiratory 5 Pressure Positive End Expiratory 5 Pressure Positive End Expiratory 5 Pressure Positive End Expiratory 5 Pressure Positive End Expiratory 5 Pressure Positive End Expiratory 5 Pressure Positive End Expiratory 5 Pressure Peak Inspiratory Airway 37 Pressure Peak Inspiratory Airway 12 Pressure Peak Inspiratory Airway 11 Pressure Peak Inspiratory Airway 11 Pressure Peak Inspiratory Airway 11 Pressure Peak Inspiratory Airway 11 Pressure Peak Inspiratory Airway 11 Pressure Peak Inspiratory Airway 11 Pressure Peak Inspiratory Airway 11 Pressure Peak Inspiratory Airway 11 Pressure Peak Inspiratory Airway 15 Pressure Peak Inspiratory Airway 16 Pressure Results - Laboratory Findings CBC and BMP: 04/05/19 04:24 04/05/19 04:24 ABG ABG pH 7.42 pH Units (7.32-7.45) 04/05/19 04:39 ABG pCO2 45 mmHg (35-45) 04/05/19 04:39 ABG pO2 61 mmHg (85-104) L 04/05/19 04:39 ABG O2 Saturation 91 % (95-98) L 04/05/19 04:39 Abnormal lab findings: Abnormal lab results WBC 11.2 K/mcL (4.3-11.1) H 04/05/19 04:24 MCHC 31.5 g/dL (31.6-35.5) L 04/04/19 04:32 RDW 14.7 % (11.5-14.5) H 04/03/19 03:28 Neutrophils # 9.1 K/mcL (1.6-8.9) H 04/04/19 04:32 Lymphocytes # 0.4 K/mcL (0.6-4.6) L 03/31/19 11:41 ABG pH 7.23 pH Units (7.32-7.45) L 03/31/19 10:51 ABG pCO2 49 mmHg (35-45) H 04/04/19 05:23 ABG pO2 61 mmHg (85-104) L 04/05/19 04:39 ABG HCO3 29 mEq/L (21-27) H 04/05/19 04:39 ABG Total CO2 31 mEq/L (20-26) H 04/05/19 04:39 ABG O2 Saturation 91 % (95-98) L 04/05/19 04:39 ABG Base Excess 4 mEq/L (-2 to 3) H 04/05/19 04:39 Chloride 108 mEq/L (98-107) H 04/04/19 04:32 Carbon Dioxide 18 mEq/L (23-29) L 03/31/19 09:36 BUN 22 mg/dL (6-20) H 04/05/19 04:24 Creatinine 0.44 mg/dL (0.60-1.20) L 04/05/19 04:24 BUN/Creatinine Ratio 50 (6-26) H 04/05/19 04:24 Glucose 159 mg/dL (70-105) H 04/05/19 04:24 POC Glucose 165 mg/dL (70-99) H 04/05/19 11:28 Calculated Osmolality 303 (280-300) H 04/03/19 03:28 Calcium 8.5 mg/dL (8.6-10.3) L 04/04/19 04:32 Total Bilirubin 0.2 mg/dL (0.3-1.0) L 04/04/19 04:32 AST 11 Units/L (13-39) L 04/04/19 04:32 Serum Total Protein 6.2 g/dL (6.4-8.9) L 04/04/19 04:32 Urine Clarity Turbid (Clear) A 03/31/19 12:52 Ur Specific [place] > 1.030 (1.010-1.025) H 03/31/19 12:52 Urine Protein 30 mg/dL (Neg-Trace) H 03/31/19 12:52 Urine Glucose (UA) 250 mg/dL (Normal) H 03/31/19 12:52 Urine Blood Moderate (Negative) H 03/31/19 12:52 Urine Bilirubin Small (Negative) H 03/31/19 12:52 Urine Microscopic RBC TNTC per hpf (0-3) H 03/31/19 12:52 Urine Microscopic WBC 5-15 per hpf (0-3) H 03/31/19 12:52 Ur Squamous Epith Cells Many per lpf (None-Few) H 03/31/19 12:52 Ur Buprenorphine Scrn Positive ng/mL (Cutoff=5) H 03/31/19 12:57 U Benzodiazepines Scrn Positive ng/mL (Mwmffd=670) H 03/31/19 12:57 Entero/Rhino (PCR) DETECTED (Not Detect) A 03/31/19 17:08 - Microbiology Findings Microbiology Findings: Microbiology, Last 48 Hours 03/31/19 07:53 Sputum Culture - Final Aspirate - Clinical Findings Intake & Output: Intake & Output 04/04/19 04/05/19 04/05/19 23:59 07:59 15:59 Intake Total 1562 / 2732 529 / 1090.2 561.2 / 1090.2 Output Total 850 / 4200 625 / 1350 725 / 1350 Balance 712 / -1468 -96 / -259.8 -163.8 / -259.8 - VTE Documentation of Mechanical Device: Intermittent pneumatic compression device Consult Discharge Plan - Plan Referrals: NONE,PCP [Primary Care Provider] - <Champ Beckford - Last Filed: 04/05/19 21:47> Date of Encounter: 04/05/19 Assessment and Plan (1) Acute respiratory failure with hypoxia and hypercapnia Current Visit: Yes Status: Acute (2) Acute encephalopathy Current Visit: Yes Status: Acute (3) Acute exacerbation of chronic obstructive airways disease Current Visit: No Status: Acute (4) DVT prophylaxis Current Visit: Yes Status: Acute Objective PUL Vital signs: Last Vital Signs Temp 99.5 F 04/05/19 16:20 Pulse 79 04/05/19 18:00 Resp 22 04/05/19 21:39 BP 103/69 04/05/19 21:39 Pulse Ox 91 04/05/19 21:39 Ventilator Settings Ventilator Settings: Ventilator Settings, Last 8 Hours Ventilator Tidal Volume 480 Setting Ventilator Tidal Volume 480 Setting Ventilator Tidal Volume 480 Setting Ventilator Tidal Volume 480 Setting Ventilator Tidal Volume 480 Setting Ventilator Tidal Volume 480 Setting Ventilator Tidal Volume 480 Setting Ventilator Tidal Volume 480 Setting Ventilator Tidal Volume 480 Setting Ventilator Respiratory Rate 16 Setting Ventilator Respiratory Rate 16 Setting Ventilator Respiratory Rate 16 Setting Ventilator Respiratory Rate 16 Setting Ventilator Respiratory Rate 16 Setting Ventilator Respiratory Rate 16 Setting Ventilator Respiratory Rate 16 Setting Ventilator Respiratory Rate 16 Setting Ventilator Respiratory Rate 16 Setting Actual Respiratory Rate 22 Actual Respiratory Rate 21 Actual Respiratory Rate 18 Actual Respiratory Rate 22 Actual Respiratory Rate 19 Actual Respiratory Rate 19 Actual Respiratory Rate 22 Actual Respiratory Rate 23 Actual Respiratory Rate 27 Positive End Expiratory 5 Pressure Positive End Expiratory 5 Pressure Positive End Expiratory 5 Pressure Positive End Expiratory 5 Pressure Positive End Expiratory 5 Pressure Positive End Expiratory 5 Pressure Positive End Expiratory 5 Pressure Positive End Expiratory 5 Pressure Positive End Expiratory 5 Pressure Peak Inspiratory Airway 28 Pressure Peak Inspiratory Airway 29 Pressure Peak Inspiratory Airway 20 Pressure Peak Inspiratory Airway 19 Pressure Peak Inspiratory Airway 20 Pressure Peak Inspiratory Airway 21 Pressure Peak Inspiratory Airway 31 Pressure Peak Inspiratory Airway 23 Pressure Peak Inspiratory Airway 37 Pressure Results - Laboratory Findings CBC and BMP: 04/05/19 04:24 04/05/19 04:24 ABG ABG pH 7.42 pH Units (7.32-7.45) 04/05/19 04:39 ABG pCO2 45 mmHg (35-45) 04/05/19 04:39 ABG pO2 61 mmHg (85-104) L 04/05/19 04:39 ABG O2 Saturation 91 % (95-98) L 04/05/19 04:39 Abnormal lab findings: Abnormal lab results WBC 11.2 K/mcL (4.3-11.1) H 04/05/19 04:24 MCHC 31.5 g/dL (31.6-35.5) L 04/04/19 04:32 RDW 14.7 % (11.5-14.5) H 04/03/19 03:28 Neutrophils # 9.1 K/mcL (1.6-8.9) H 04/04/19 04:32 Lymphocytes # 0.4 K/mcL (0.6-4.6) L 03/31/19 11:41 ABG pH 7.23 pH Units (7.32-7.45) L 03/31/19 10:51 ABG pCO2 49 mmHg (35-45) H 04/04/19 05:23 ABG pO2 61 mmHg (85-104) L 04/05/19 04:39 ABG HCO3 29 mEq/L (21-27) H 04/05/19 04:39 ABG Total CO2 31 mEq/L (20-26) H 04/05/19 04:39 ABG O2 Saturation 91 % (95-98) L 04/05/19 04:39 ABG Base Excess 4 mEq/L (-2 to 3) H 04/05/19 04:39 Chloride 108 mEq/L (98-107) H 04/04/19 04:32 Carbon Dioxide 18 mEq/L (23-29) L 03/31/19 09:36 BUN 22 mg/dL (6-20) H 04/05/19 04:24 Creatinine 0.44 mg/dL (0.60-1.20) L 04/05/19 04:24 BUN/Creatinine Ratio 50 (6-26) H 04/05/19 04:24 Glucose 159 mg/dL (70-105) H 04/05/19 04:24 POC Glucose 135 mg/dL (70-99) H 04/05/19 15:49 Calculated Osmolality 303 (280-300) H 04/03/19 03:28 Calcium 8.5 mg/dL (8.6-10.3) L 04/04/19 04:32 Total Bilirubin 0.2 mg/dL (0.3-1.0) L 04/04/19 04:32 AST 11 Units/L (13-39) L 04/04/19 04:32 Serum Total Protein 6.2 g/dL (6.4-8.9) L 04/04/19 04:32 Urine Clarity Turbid (Clear) A 03/31/19 12:52 Ur Specific [place] > 1.030 (1.010-1.025) H 03/31/19 12:52 Urine Protein 30 mg/dL (Neg-Trace) H 03/31/19 12:52 Urine Glucose (UA) 250 mg/dL (Normal) H 03/31/19 12:52 Urine Blood Moderate (Negative) H 03/31/19 12:52 Urine Bilirubin Small (Negative) H 03/31/19 12:52 Urine Microscopic RBC TNTC per hpf (0-3) H 03/31/19 12:52 Urine Microscopic WBC 5-15 per hpf (0-3) H 03/31/19 12:52 Ur Squamous Epith Cells Many per lpf (None-Few) H 03/31/19 12:52 Ur Buprenorphine Scrn Positive ng/mL (Cutoff=5) H 03/31/19 12:57 U Benzodiazepines Scrn Positive ng/mL (Tpihpw=575) H 03/31/19 12:57 Entero/Rhino (PCR) DETECTED (Not Detect) A 03/31/19 17:08 - Microbiology Findings Microbiology Findings: Microbiology, Last 48 Hours 03/31/19 07:53 Sputum Culture - Final Aspirate - Clinical Findings Intake & Output: Intake & Output 04/05/19 04/05/19 04/05/19 07:59 15:59 23:59 Intake Total 529 / 1749.1 821.2 / 1749.1 398.9 / 1749.1 Output Total 625 / 1900 725 / 1900 550 / 1900 Balance -96 / -150.9 96.2 / -150.9 -151.1 / -150.9 - Attending Attestation I saw and evaluated this patient and my medical decision-making was reviewed with the Resident Physician. I agree with the documented findings, disposition and treatment plan as described except to the extent set forth below. We indepe ndently had [id number] contact with the patient I spent 40 minutes of Critical Care time with this patient. It involved decision making of high complexity to assess, manipulate, and support vital organ system failure and/or to prevent further life threatening deterioration of the patient's condition. The time involved in the performance of separately reportable procedures was not counted toward critical care time. Patient seen and examined at bedside Labs, radiology, chart personally reviewed. Management was reviewed during multidisciplinary critical care rounds. PST MANAGER: Patient still has agitated delirium history was started on Seroquel to increase the dose of Seroquel and Haldol. EEG showed no evidence of seizure activity. Pulm: Patient has acceptable oxygenation and ventilation viral exacerbation of COPD, patient was put on spontaneous breathing trial patient got agitated Cards: Patient is hemodynamically stable diuresis as tolerated but currently patient is auto diuresing. FEN-GI: Diet according to nutrition. Renal: Labs and output were reviewed ID: No active infectious disease issues Heme/Onc: Labs reviewed Endo: Glucose Monitored Integ/MSK: Skin Care per routine ICU Nursing Protocol to prevent ulcers. Lines: All lines examined without evidence of infection : Dispo: Patient is critically ill CODE:Full Code
--- NOTE | 2019-04-05 16:09 | Electrocardiograph Report ---
[address] [address] Test Date: 2019-04-04 Pat Name: Barbara Chaves Department: 109 Room: 12 Gender: F Early Intervention Specialist: RAJANI : [id number] Requested By: Jose Seay Order Number: [id number] Reading MD: Leann Marino Measurements Intervals [place] Rate: 86 P: 70 TX: 142 QRS: 69 QRSD: 88 T: 57 QT: 355 QTc: 398 Interpretive Statements SINUS RHYTHM Electronically Signed On 04-05-2019 16:07:49 EDT by Leann Marino
--- NOTE | 2019-04-05 16:18 | EEG/EMG/Oth Biometrics Report ---
EEG Procedure Report EEG Procedure: Routine EEG Procedure Note: Routine 21-channel digital EEG was obtained to rule out any seizure activity or focal abnormalities. FINDINGS: Background rhythm during awake stage shows poorly organized, low voltage delta activity in the posterior and anterior regions, intermixed with t heta activity No [id number] discharges or any lateralizing abnormalities are seen. EMG artifacts and tremor artifacts are noted. Photic stimulation did not produce any abnormalities. Stage II sleep was not observed. IMPRESSION: No clear paroxysmal activities or epileptiform discharges were seen. Prominent delta activity noted, which is a nonspecific pattern usually associated with diffuse cortical dysfunction as commonly seen in the patient with metabolic toxic encephalopathy, at the same time it could be seen in the postictal state as well as medication side effect, clinical correlation is suggested.
[2019-04-06] MEDS: Artificial Tears SOLN 15 ML BOTTLE BOTH EYES SCH ×8 (00:17→20:25)
[2019-04-06] MEDS: FentaNYL (PF) 1,000 MCG in 0.9 % Sodium Chloride 80 ML IVC SCH ×2 (00:27→07:35)
[2019-04-06] MEDS: Dexmedetomidine HCl 400 MCG/100 ML MLS IVC SCH ×2 (02:51→08:41)
[2019-04-06] MEDS: Ipratropium/Albuterol Neb 3 ML IH SCH ×6 (03:25→23:42)
[2019-04-06 04:17] LABS: ABG Base Excess 5 mEq/L (-2 to 3); ABG HCO3 31 mEq/L (21-27); ABG Oxygen Saturation 93 % (95-98); ABG PCO2 49 mmHg (35-45); ABG PH 7.41 pH Units (7.32-7.45); ABG PO2 68 mmHg (85-104); ABG TCO2 32 mEq/L (20-26); Blood Gas Modality VC; Blood Gas PEEP 5 cm H2O; Blood Gas VT 480 cc
[2019-04-06 06:05] LABS: Basophils % 0.3 %; Eosinophils # 0.2 K/mcL (0.0-0.6); Eosinophils % 1.3 %; Hematocrit 40.5 % (35.3-44.9); Hemoglobin 12.9 g/dL (11.5-15.4); Immature Granulocytes % 2.4 % (0-4); Lymphocytes # 3.4 K/mcL (0.6-4.6); Lymphocytes % 27.4 %; Mean Corpuscular HGB Conc 31.9 g/dL (31.6-35.5); Mean Corpuscular Hemoglobin 30.5 pg (28.0-33.3); Mean Corpuscular Volume 95.7 fL (83.0-100.0); Mean Platelet Volume 11.4 fL (9.4-12.4); Monocytes # 1.1 K/mcL (0.0-1.3); Monocytes % 8.6 %; Neutrophils # 7.4 K/mcL (1.6-8.9); Platelet Count 201 K/mcL (140-400); Red Blood Count 4.23 M/mcL (3.82-4.97); Red Cell Distribution Width 14.5 % (11.5-14.5); White Blood Count 12.3 K/mcL (4.3-11.1)
[2019-04-06 06:29] LABS: Alanine Aminotransferase 16 Units/L (7-52); Albumin 3.6 g/dL (3.5-5.7); Albumin/Globulin Ratio 1.4 (1.1-2.2); Alkaline Phosphatase 41 Units/L (34-104); Aspartate Amino Transferase 9 Units/L (13-39); BUN/Creatinine Ratio 59 (6-26); Bilirubin,Total 0.3 mg/dL (0.3-1.0); Blood Urea Nitrogen 30 mg/dL (6-20); Calcium 8.8 mg/dL (8.6-10.3); Carbon Dioxide 31 mEq/L (23-29); Chloride 102 mEq/L (98-107); Globulin 2.6 g/dL (2.4-3.5); Glucose 135 mg/dL (70-105); Osmolality,Calculated 298 (280-300); Potassium 3.6 mEq/L (3.5-5.1); Sodium 140 mEq/L (136-145); Total Protein 6.2 g/dL (6.4-8.9); eGFR For African Americans > 60 (> 60); eGFR For Non-African Americans > 60 (> 60)
[2019-04-06] MEDS: *HR* Heparin 5,000 UNIT/ML VIAL SQ SCH ×2 (06:33→16:17)
[2019-04-06] MEDS: Budesonide/Formoterol 80/4.5 1 PUFF INH IH SCH ×2 (07:25→20:01)
[2019-04-06] MEDS: Chlorhexidine Rinse 15 ML MOUTHWASH MM SCH ×2 (08:03→19:18)
[2019-04-06] MEDS: Pantoprazole 40 MG VIAL IVP SCH (08:04)
[2019-04-06] MEDS ORDERED: MethylPREDNISolone 40 MG/ML VIAL IVP SCH (09:00)
--- NOTE | 2019-04-06 11:06 | Pulmonology Progress Note ---
<Merritt Elder S - Last Filed: 04/06/19 13:33> Date of Encounter: 04/06/19 Time of Encounter: 11:06 Assessment and Plan (1) Acute respiratory failure with hypoxia and hypercapnia Current Visit: Yes Status: Acute Patient intubated 03/31 for inability to tolerate BiPAP Added fentanyl 2 help patient wean off Midazolam drip yesterday ABG today showed improved pH, PCO2, bicarbonate. PCO2 fell from 66 to 61 Trials to wean sedatives have resulted repeatedly in patient agitation * Continue to try weaning sedatives * Repeat SBT in the morning * Repeat ABG in the morning * (2) Acute encephalopathy Current Visit: Yes Status: Acute Neurological status difficult to assess as patient is intubated and sedated. * EEG ordered for today * Continue to try weaning off ventilator * Increase Seroquel to 100 * PRN Haldol 5mg every 6hours * Check ammonia level * Replenished thiamine and folate * Decreased steroid to 40 mg daily Subjective Principal diagnosis: Respiratory Failure Interval history: Mrs. Chaves is a 54-year-old female admitted to her service for acute respiratory failure, intubated on 03/31 Patient was extubated today just before 10 AM, she is still partially sedated, but is awake, and oriented to self and place. She is unable to recall the month, but is able to select the correct month from a list of 3 options. She reports no complaints. She denies chest pain, belly pain, or trouble breathing. Patient had one episode of trying to get out of her bed, stating she was going home. I discussed with her that she was still on medications, and that her breathing was not all the way better yet. She responded well and is amenable to staying. Herattempt to leave was not due to frustration, but she seemed to believe that she was being released. Objective PUL Vital signs: Last Vital Signs Temp 99.4 F 04/06/19 10:58 Pulse 96 04/06/19 10:00 Resp 16 04/06/19 10:00 BP 134/88 04/06/19 10:00 Pulse Ox 91 04/06/19 10:00 General appearance: no acute distress Eyes: nonicteric ENT: oropharynx moist Effort: mildly labored Auscultation: bilateral: other (Course breath sounds throughout, likely referred from upper airway) Cardiovascular: regular rate and rhythm Gastrointestinal: soft, non-tender, non-distended Integumentary: normal Extremities: no cyanosis Musculoskeletal: no deformities non-focal exam, CN II-XII normal, motor strength normal and symmetric other (Partially sedated) Ventilator Settings Ventilator Settings: Ventilator Settings, Last 8 Hours Ventilator Tidal Volume 480 Setting Ventilator Tidal Volume 480 Setting Ventilator Tidal Volume 480 Setting Ventilator Tidal Volume 480 Setting Ventilator Tidal Volume 480 Setting Ventilator Tidal Volume 480 Setting Ventilator Respiratory Rate 8 Setting Ventilator Respiratory Rate 16 Setting Ventilator Respiratory Rate 16 Setting Ventilator Respiratory Rate 16 Setting Ventilator Respiratory Rate 16 Setting Ventilator Respiratory Rate 16 Setting Actual Respiratory Rate 16 Actual Respiratory Rate 16 Actual Respiratory Rate 16 Actual Respiratory Rate 14 Actual Respiratory Rate 20 Actual Respiratory Rate 22 Actual Respiratory Rate 18 Actual Respiratory Rate 16 Positive End Expiratory 5 Pressure Positive End Expiratory 5 Pressure Positive End Expiratory 5 Pressure Positive End Expiratory 5 Pressure Positive End Expiratory 5 Pressure Positive End Expiratory 5 Pressure Positive End Expiratory 5 Pressure Positive End Expiratory 5 Pressure Positive End Expiratory 5 Pressure Positive End Expiratory 5 Pressure Peak Inspiratory Airway 11 Pressure Peak Inspiratory Airway 11 Pressure Peak Inspiratory Airway 11 Pressure Peak Inspiratory Airway 38 Pressure Peak Inspiratory Airway 37 Pressure Peak Inspiratory Airway 26 Pressure Peak Inspiratory Airway 26 Pressure Results - Laboratory Findings CBC and BMP: 04/06/19 05:44 04/06/19 05:44 ABG ABG pH 7.41 pH Units (7.32-7.45) 04/06/19 04:14 ABG pCO2 49 mmHg (35-45) H 04/06/19 04:14 ABG pO2 68 mmHg (85-104) L 04/06/19 04:14 ABG O2 Saturation 93 % (95-98) L 04/06/19 04:14 Abnormal lab findings: Abnormal lab results WBC 12.3 K/mcL (4.3-11.1) H 04/06/19 05:44 MCHC 31.5 g/dL (31.6-35.5) L 04/04/19 04:32 RDW 14.7 % (11.5-14.5) H 04/03/19 03:28 Neutrophils # 9.1 K/mcL (1.6-8.9) H 04/04/19 04:32 Lymphocytes # 0.4 K/mcL (0.6-4.6) L 03/31/19 11:41 ABG pH 7.23 pH Units (7.32-7.45) L 03/31/19 10:51 ABG pCO2 49 mmHg (35-45) H 04/06/19 04:14 ABG pO2 68 mmHg (85-104) L 04/06/19 04:14 ABG HCO3 31 mEq/L (21-27) H 04/06/19 04:14 ABG Total CO2 32 mEq/L (20-26) H 04/06/19 04:14 ABG O2 Saturation 93 % (95-98) L 04/06/19 04:14 ABG Base Excess 5 mEq/L (-2 to 3) H 04/06/19 04:14 Chloride 108 mEq/L (98-107) H 04/04/19 04:32 Carbon Dioxide 31 mEq/L (23-29) H 04/06/19 05:44 BUN 30 mg/dL (6-20) H 04/06/19 05:44 Creatinine 0.51 mg/dL (0.60-1.20) L 04/06/19 05:44 BUN/Creatinine Ratio 59 (6-26) H 04/06/19 05:44 Glucose 135 mg/dL (70-105) H 04/06/19 05:44 POC Glucose 151 mg/dL (70-99) H 04/06/19 11:00 Calculated Osmolality 303 (280-300) H 04/03/19 03:28 Calcium 8.5 mg/dL (8.6-10.3) L 04/04/19 04:32 Total Bilirubin 0.2 mg/dL (0.3-1.0) L 04/04/19 04:32 AST 9 Units/L (13-39) L 04/06/19 05:44 Serum Total Protein 6.2 g/dL (6.4-8.9) L 04/06/19 05:44 Urine Clarity Turbid (Clear) A 03/31/19 12:52 Ur Specific [place] > 1.030 (1.010-1.025) H 03/31/19 12:52 Urine Protein 30 mg/dL (Neg-Trace) H 03/31/19 12:52 Urine Glucose (UA) 250 mg/dL (Normal) H 03/31/19 12:52 Urine Blood Moderate (Negative) H 03/31/19 12:52 Urine Bilirubin Small (Negative) H 03/31/19 12:52 Urine Microscopic RBC TNTC per hpf (0-3) H 03/31/19 12:52 Urine Microscopic WBC 5-15 per hpf (0-3) H 03/31/19 12:52 Ur Squamous Epith Cells Many per lpf (None-Few) H 03/31/19 12:52 Ur Buprenorphine Scrn Positive ng/mL (Cutoff=5) H 03/31/19 12:57 U Benzodiazepines Scrn Positive ng/mL (Vhgbji=915) H 03/31/19 12:57 Entero/Rhino (PCR) DETECTED (Not Detect) A 03/31/19 17:08 - Microbiology Findings Microbiology Findings: Microbiology, Last 48 Hours 03/31/19 07:53 Sputum Culture - Final Aspirate - Clinical Findings Intake & Output: Intake & Output 04/05/19 04/06/19 04/06/19 23:59 07:59 15:59 Intake Total 1117.9 / 2779.1 923.1 / 1083.1 160 / 1083.1 Output Total 1000 / 2350 660 / 1260 600 / 1260 Balance 117.9 / 429.1 263.1 / -176.9 -440 / -176.9 Weight 66.8 kg - VTE Documentation of Mechanical Device: Intermittent pneumatic compression device Consult Discharge Plan - Plan Referrals: NONE,PCP [Primary Care Provider] - <Champ Beckford - Last Filed: 04/06/19 22:10> Date of Encounter: 04/06/19 Assessment and Plan (1) Acute respiratory failure with hypoxia and hypercapnia Current Visit: Yes Status: Acute (2) Acute encephalopathy Current Visit: Yes Status: Acute (3) Acute exacerbation of chronic obstructive airways disease Current Visit: No Status: Acute (4) DVT prophylaxis Current Visit: Yes Status: Acute Objective PUL Vital signs: Last Vital Signs Temp 98.2 F 04/06/19 20:15 Pulse 101 04/06/19 21:00 Resp 20 04/06/19 21:00 BP 131/91 04/06/19 21:00 Pulse Ox 97 04/06/19 21:00 Results - Laboratory Findings CBC and BMP: 04/06/19 05:44 04/06/19 05:44 ABG ABG pH 7.51 pH Units (7.32-7.45) H 04/06/19 11:25 ABG pCO2 39 mmHg (35-45) 04/06/19 11:25 ABG pO2 64 mmHg (85-104) L 04/06/19 11:25 ABG O2 Saturation 94 % (95-98) L 04/06/19 11:25 Abnormal lab findings: Abnormal lab results WBC 12.3 K/mcL (4.3-11.1) H 04/06/19 05:44 MCHC 31.5 g/dL (31.6-35.5) L 04/04/19 04:32 RDW 14.7 % (11.5-14.5) H 04/03/19 03:28 Neutrophils # 9.1 K/mcL (1.6-8.9) H 04/04/19 04:32 Lymphocytes # 0.4 K/mcL (0.6-4.6) L 03/31/19 11:41 ABG pH 7.51 pH Units (7.32-7.45) H 04/06/19 11:25 ABG pCO2 49 mmHg (35-45) H 04/06/19 04:14 ABG pO2 64 mmHg (85-104) L 04/06/19 11:25 ABG HCO3 31 mEq/L (21-27) H 04/06/19 11:25 ABG Total CO2 32 mEq/L (20-26) H 04/06/19 11:25 ABG O2 Saturation 94 % (95-98) L 04/06/19 11:25 ABG Base Excess 7 mEq/L (-2 to 3) H 04/06/19 11:25 Chloride 108 mEq/L (98-107) H 04/04/19 04:32 Carbon Dioxide 31 mEq/L (23-29) H 04/06/19 05:44 BUN 30 mg/dL (6-20) H 04/06/19 05:44 Creatinine 0.51 mg/dL (0.60-1.20) L 04/06/19 05:44 BUN/Creatinine Ratio 59 (6-26) H 04/06/19 05:44 Glucose 135 mg/dL (70-105) H 04/06/19 05:44 POC Glucose 151 mg/dL (70-99) H 04/06/19 11:00 Calculated Osmolality 303 (280-300) H 04/03/19 03:28 Calcium 8.5 mg/dL (8.6-10.3) L 04/04/19 04:32 Total Bilirubin 0.2 mg/dL (0.3-1.0) L 04/04/19 04:32 AST 9 Units/L (13-39) L 04/06/19 05:44 Serum Total Protein 6.2 g/dL (6.4-8.9) L 04/06/19 05:44 Urine Clarity Turbid (Clear) A 03/31/19 12:52 Ur Specific [place] > 1.030 (1.010-1.025) H 03/31/19 12:52 Urine Protein 30 mg/dL (Neg-Trace) H 03/31/19 12:52 Urine Glucose (UA) 250 mg/dL (Normal) H 03/31/19 12:52 Urine Blood Moderate (Negative) H 03/31/19 12:52 Urine Bilirubin Small (Negative) H 03/31/19 12:52 Urine Microscopic RBC TNTC per hpf (0-3) H 03/31/19 12:52 Urine Microscopic WBC 5-15 per hpf (0-3) H 03/31/19 12:52 Ur Squamous Epith Cells Many per lpf (None-Few) H 03/31/19 12:52 Ur Buprenorphine Scrn Positive ng/mL (Cutoff=5) H 03/31/19 12:57 U Benzodiazepines Scrn Positive ng/mL (Clbyna=105) H 03/31/19 12:57 Entero/Rhino (PCR) DETECTED (Not Detect) A 03/31/19 17:08 - Clinical Findings Intake & Output: Intake & Output 04/06/19 04/06/19 04/06/19 07:59 15:59 23:59 Intake Total 923.1 / 1167.1 220 / 1167.1 24 / 1167.1 Output Total 660 / 2985 600 / 2985 1725 / 2985 Balance 263.1 / -1817.9 -380 / -1817.9 -1701 / -1817.9 Weight 66.8 kg - Attending Attestation - Attending Attestation I saw and evaluated this patient and my medical decision-making was reviewed with the Resident Physician. I agree with the documented findings, disposition and treatment plan as described except to the extent set forth below. We independently had [id number] contact with the patient I spent 33 minutes of Critical Care time with this patient. It involved decision making of high complexity to assess, manipulate, and support vital organ system failure and/or to prevent further life threatening deterioration of the patient's condition. The time involved in the performance of separately reportable procedures was not counted toward critical care time. Patient seen and examined at bedside Labs, radiology, chart personally reviewed. Management was reviewed during multidisciplinary critical care rounds. 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 EEG showed no evidence of seizure activity. 04/06 patient is more awake following commands connecting with me no significant encephalopathy today. Will try to extubate today. Pulm: Patient has acceptable oxygenation and ventilation viral exacerbation of COPD, patient was put on spontaneous breathing trial patient got agitated 04/06 patient has acceptable oxygenation and ventilation patient passed the spontaneous breathing trial extubated to nasal cannula will do gentle diuresis as tolerated. Cards: Patient is hemodynamically stable diuresis as tolerated but currently patient is auto diuresing. 04/06 she hemodynamically stable patient is auto diuresing FEN-GI: Advance diet as tolerated after extubation Renal: Labs and output were reviewed ID: No active infectious disease issues Heme/Onc: Labs reviewed Endo: Glucose Monitored Integ/MSK: Skin Care per routine ICU Nursing Protocol to prevent ulcers. Lines: All lines examined without evidence of infection : Dispo: Patient is critically ill high chance of reintubation CODE:Full Code
[2019-04-06 11:28] LABS: ABG Base Excess 7 mEq/L (-2 to 3); ABG HCO3 31 mEq/L (21-27); ABG Oxygen Saturation 94 % (95-98); ABG PCO2 39 mmHg (35-45); ABG PH 7.51 pH Units (7.32-7.45); ABG PO2 64 mmHg (85-104); ABG TCO2 32 mEq/L (20-26)
--- NOTE | 2019-04-06 15:05 | Internal Med Progress Note ---
Hospitalist Progress Note - Encounter Date of Encounter: 04/06/19 Time of Encounter: 15:03 - Subjective Interval History: This is a 54-year-old female with a past medical history of CHF, COPD, ongoing tobacco abuse admitted to our facility on 03/31/2019. She was initially in respiratory distress requiring BiPAP, however she continued to worsen and was ultimately intubated. Initial blood gas showed a pH of 7.28, PCO2 of 49. Patient is currently day #6 above ventilatory support. He was some question of substance abuse that she did test positive for Suboxone, but we cannot verify. Patient also has a history of baseline anxiety disorder. She is currently showing improvement and we are attempting spontaneous breathing trial today. No evidence of infection. We have added Seroquel to her regimen as well as when necessary hydralazine for her encephalopathy, documented psychosis. 04/06: Successfully extubated today. She remains on low-dose Precedex due to anxiety. Patient is denying any chest pain or shortness of breath. She is an unreliable historian as she still remains mildly confused. No nausea or vomiting. No fevers or chills. Other than that mentioned above a 10 point review of systems is negative - Exam Vitals: Temp Pulse Resp BP Pulse Ox 99.4 F 102 20 127/80 94 04/06/19 10:58 04/06/19 14:00 04/06/19 14:00 04/06/19 14:00 04/06/19 14:00 Exam: General: Resting quietly, no acute distress, mild confusion, nontoxic appearance Skin is pale, warm and dry no rash Oropharynx moist Neck is supple Lungs show diminished breath sounds at the bases otherwise clear, scant wheeze Heart regular rate and rhythm Abdomen is soft nontender nondistended with normoactive bowel sounds X-ray show no edema, capillary refill less than 2.5 second Neurogical exam grossly nonfocal - Assessment and Plan (1) Acute respiratory failure with hypoxia and hypercapnia Current Visit: Yes Status: Acute Assessment and Plan: Likely due to COPD exacerbation successfully extubated this am, wean precedex (2) Acute encephalopathy Current Visit: Yes Status: Acute Assessment and Plan: She is now on Seroquel and when necessary Haldol -monitor QT interval -improving, weaning sedatives (3) Acute exacerbation of chronic obstructive airways disease Current Visit: No Status: Acute Assessment and Plan: Aggressive bronchodilator therapy, steroid taper, monitor (4) DVT prophylaxis Current Visit: Yes Status: Acute Assessment and Plan: Subcutaneous heparin (5) Hypokalemia Current Visit: No Status: Resolved (6) Tobacco abuse Current Visit: Yes Status: Acute Assessment and Plan: Future counseling DVT Prophylaxis: SubQ heparin - Time Spent with Patient Total time spent is greater than 50% in coordination of care (as documented) at patient's floor/unit and/or counseling patient: Greater than 35 minutes Internal Medicine: Result - Labs CBC & Chem 7: 04/06/19 05:44 04/06/19 05:44 Labs: Short CBC 04/06/19 Range/Units 05:44 WBC 12.3 H (4.3-11.1) K/mcL Hgb 12.9 (11.5-15.4) g/dL Hct 40.5 (35.3-44.9) % Plt Count 201 (140-400) K/mcL Neutrophils # 7.4 (1.6-8.9) K/mcL BMP 04/06/19 05:44 Sodium 140 Potassium 3.6 Chloride 102 Carbon Dioxide 31 H BUN 30 H Creatinine 0.51 L Glucose 135 H Calcium 8.8 Liver Function 04/06/19 Range/Units 05:44 Total Bilirubin 0.3 (0.3-1.0) mg/dL AST 9 L (13-39) Units/L ALT 16 (7-52) Units/L Alkaline Phosphatase 41 (34-104) Units/L Albumin 3.6 (3.5-5.7) g/dL - ABG Interpretation ABG results: ABG ABG pH 7.51 pH Units (7.32-7.45) H 04/06/19 11:25 ABG pCO2 39 mmHg (35-45) 04/06/19 11:25 ABG pO2 64 mmHg (85-104) L 04/06/19 11:25 ABG O2 Saturation 94 % (95-98) L 04/06/19 11:25 - VTE Documentation of Mechanical Device: Intermittent pneumatic compression device Consult Discharge Plan - Plan Referrals: NONE,PCP [Primary Care Provider] -
[2019-04-06] MEDS: Nicotine 21 MG PATCH.TD24 TD SCH (16:18)
[2019-04-06] MEDS ORDERED: 0.9 % Sodium Chloride 1,000 ML ONE (23:01)
[2019-04-06] MEDS ORDERED: 0.9 % Sodium Chloride 1,000 ML IVC ONE (23:03)
[2019-04-07] MEDS: Ipratropium/Albuterol Neb 3 ML IH SCH ×2 (03:43→07:45)
[2019-04-07 04:40] LABS: Basophils # 0.1 K/mcL (0.0-0.2); Basophils % 0.3 %; Eosinophils # 0.2 K/mcL (0.0-0.6); Eosinophils % 1.4 %; Hematocrit 45.2 % (35.3-44.9); Immature Granulocytes % 2.2 % (0-4); Lymphocytes # 3.1 K/mcL (0.6-4.6); Lymphocytes % 21.7 %; Mean Corpuscular HGB Conc 32.5 g/dL (31.6-35.5); Mean Corpuscular Hemoglobin 29.6 pg (28.0-33.3); Mean Corpuscular Volume 91.1 fL (83.0-100.0); Mean Platelet Volume 11.3 fL (9.4-12.4); Monocytes # 1.2 K/mcL (0.0-1.3); Monocytes % 8.3 %; Neutrophils # 9.4 K/mcL (1.6-8.9); Platelet Count 230 K/mcL (140-400); Red Blood Count 4.96 M/mcL (3.82-4.97); Red Cell Distribution Width 14.1 % (11.5-14.5); Segmented Neutrophils % 66.1 %; White Blood Count 14.3 K/mcL (4.3-11.1)
[2019-04-07 04:44] LABS: VBG HCO3 28 mEq/L (21-27); VBG PCO2 36 mmHg (41-51); VBG PH 7.49 pH Units (7.32-7.42); VBG PO2 94 mmHg (25-50)
[2019-04-07 04:45] LABS: Hemoglobin 14.7 g/dL (11.5-15.4)
[2019-04-07 05:01] LABS: Alanine Aminotransferase 22 Units/L (7-52); Albumin 3.9 g/dL (3.5-5.7); Albumin/Globulin Ratio 1.3 (1.1-2.2); Alkaline Phosphatase 47 Units/L (34-104); Aspartate Amino Transferase 16 Units/L (13-39); BUN/Creatinine Ratio 41 (6-26); Bilirubin,Total 0.8 mg/dL (0.3-1.0); Blood Urea Nitrogen 18 mg/dL (6-20); Calcium 9.2 mg/dL (8.6-10.3); Carbon Dioxide 25 mEq/L (23-29); Chloride 105 mEq/L (98-107); Glucose 101 mg/dL (70-105); Osmolality,Calculated 298 (280-300); Sodium 143 mEq/L (136-145); Total Protein 6.9 g/dL (6.4-8.9); eGFR For African Americans > 60 (> 60); eGFR For Non-African Americans > 60 (> 60)
[2019-04-07] MEDS ORDERED: Potassium Chloride Elixir 20 MEQ/15 ML UDC PO ONE (05:07)
[2019-04-07] MEDS: Artificial Tears SOLN 15 ML BOTTLE BOTH EYES SCH ×2 (05:08→07:57)
[2019-04-07] MEDS: *HR* Heparin 5,000 UNIT/ML VIAL SQ SCH ×2 (05:13→15:11)
[2019-04-07] MEDS: Budesonide/Formoterol 80/4.5 1 PUFF INH IH SCH ×2 (07:45→22:32)
[2019-04-07] MEDS: Chlorhexidine Rinse 15 ML MOUTHWASH MM SCH (07:57)
[2019-04-07 08:21] LABS: Magnesium 2.1 mg/dL (1.6-2.6)
[2019-04-07] MEDS: predniSONE 20 MG TABLET PO SCH (09:21)
[2019-04-07] MEDS: Pantoprazole 40 MG VIAL IVP SCH (09:22)
[2019-04-07] MEDS: Nicotine 21 MG PATCH.TD24 TD SCH (09:26)
[2019-04-07] MEDS ORDERED: *HR* LORazepam 1 MG TABLET PO ONE (09:53)
--- NOTE | 2019-04-07 10:48 | Pulmonology Progress Note ---
<Merritt Elder S - Last Filed: 04/07/19 18:55> Date of Encounter: 04/07/19 Time of Encounter: 10:48 Assessment and Plan (1) Acute respiratory failure with hypoxia and hypercapnia Current Visit: Yes Status: Acute Patient intubated 03/31 for inability to tolerate BiPAP. Extubated yesterday. Patient is no longer getting any sedatives, reports feeling better. * Encouraged incentive spirometer use * Add Mucinex * Switched DuoNeb to Xopenex to try to help patient's tachycardia * Tachycardia responded yesterday to fluid bolus, try 1 L fluid bolus today if she remains elevated * Steroids changed to by mouth, 6 day taper initiated * Patient ready for downgrade to telemetry (2) Acute encephalopathy Current Visit: Yes Status: Acute Patient is back to baseline mental status Remains weak, warm to the touch without measured fevers Mild electrolyte abnormalities, notably hypokalemia at 3.0 present today Kidney function remains normal * Initiate electrolyte protocol * Continue Seroquel QHS * Discontinue Anthony * PT/OT consult * Advance diet as tolerated Subjective Principal diagnosis: Respiratory Failure Interval history: Mrs. Chaves is a 54-year-old female admitted to her service for acute respiratory failure, intubated on 03/31 Patient was extubated yesterday morning, she is fully awake, and a and O 3. She reports no complaints. She denies chest pain, belly pain, or trouble breathing. Patient is tachycardic, but without any palpitations or lightheadedness. She has not had a bowel movement since admission. Objective PUL Vital signs: Last Vital Signs Temp 97.5 F L 04/07/19 08:00 Pulse 117 04/07/19 09:00 Resp 18 04/07/19 09:00 BP 156/98 04/07/19 09:00 Pulse Ox 92 04/07/19 09:00 General appearance: no acute distress Eyes: nonicteric ENT: oropharynx moist Effort: normal Auscultation: bilateral: wheezes (Faint) Cardiovascular: other (Tachycardic, regular. She has alternated between high 90s and 120s this morning) Gastrointestinal: soft, non-tender, non-distended Integumentary: normal Extremities: no cyanosis, edema (Trace edema bilateral lower extremities) normal mental status, non-focal exam mood appropriate, affect normal Results - Laboratory Findings CBC and BMP: 04/07/19 04:29 04/07/19 04:29 ABG ABG pH 7.51 pH Units (7.32-7.45) H 04/06/19 11:25 ABG pCO2 39 mmHg (35-45) 04/06/19 11:25 ABG pO2 64 mmHg (85-104) L 04/06/19 11:25 ABG O2 Saturation 94 % (95-98) L 04/06/19 11:25 Abnormal lab findings: Abnormal lab results WBC 14.3 K/mcL (4.3-11.1) H 04/07/19 04:29 Hct 45.2 % (35.3-44.9) H 04/07/19 04:29 MCHC 31.5 g/dL (31.6-35.5) L 04/04/19 04:32 RDW 14.7 % (11.5-14.5) H 04/03/19 03:28 Neutrophils # 9.4 K/mcL (1.6-8.9) H 04/07/19 04:29 Lymphocytes # 0.4 K/mcL (0.6-4.6) L 03/31/19 11:41 ABG pH 7.51 pH Units (7.32-7.45) H 04/06/19 11:25 ABG pCO2 49 mmHg (35-45) H 04/06/19 04:14 ABG pO2 64 mmHg (85-104) L 04/06/19 11:25 ABG HCO3 31 mEq/L (21-27) H 04/06/19 11:25 ABG Total CO2 32 mEq/L (20-26) H 04/06/19 11:25 ABG O2 Saturation 94 % (95-98) L 04/06/19 11:25 ABG Base Excess 7 mEq/L (-2 to 3) H 04/06/19 11:25 VBG pH 7.49 pH Units (7.32-7.42) H 04/07/19 04:40 VBG pCO2 36 mmHg (41-51) L 04/07/19 04:40 VBG pO2 94 mmHg (25-50) H 04/07/19 04:40 VBG HCO3 28 mEq/L (21-27) H 04/07/19 04:40 Potassium 3.0 mEq/L (3.5-5.1) L 04/07/19 04:29 Chloride 108 mEq/L (98-107) H 04/04/19 04:32 Carbon Dioxide 31 mEq/L (23-29) H 04/06/19 05:44 BUN 30 mg/dL (6-20) H 04/06/19 05:44 Creatinine 0.44 mg/dL (0.60-1.20) L 04/07/19 04:29 BUN/Creatinine Ratio 41 (6-26) H 04/07/19 04:29 Glucose 135 mg/dL (70-105) H 04/06/19 05:44 POC Glucose 151 mg/dL (70-99) H 04/06/19 11:00 Calculated Osmolality 303 (280-300) H 04/03/19 03:28 Calcium 8.5 mg/dL (8.6-10.3) L 04/04/19 04:32 Total Bilirubin 0.2 mg/dL (0.3-1.0) L 04/04/19 04:32 AST 9 Units/L (13-39) L 04/06/19 05:44 Serum Total Protein 6.2 g/dL (6.4-8.9) L 04/06/19 05:44 Urine Clarity Turbid (Clear) A 03/31/19 12:52 Ur Specific Moon > 1.030 (1.010-1.025) H 03/31/19 12:52 Urine Protein 30 mg/dL (Neg-Trace) H 03/31/19 12:52 Urine Glucose (UA) 250 mg/dL (Normal) H 03/31/19 12:52 Urine Blood Moderate (Negative) H 03/31/19 12:52 Urine Bilirubin Small (Negative) H 03/31/19 12:52 Urine Microscopic RBC TNTC per hpf (0-3) H 03/31/19 12:52 Urine Microscopic WBC 5-15 per hpf (0-3) H 03/31/19 12:52 Ur Squamous Epith Cells Many per lpf (None-Few) H 03/31/19 12:52 Ur Buprenorphine Scrn Positive ng/mL (Cutoff=5) H 03/31/19 12:57 U Benzodiazepines Scrn Positive ng/mL (Pabjrh=416) H 03/31/19 12:57 Entero/Rhino (PCR) DETECTED (Not Detect) A 03/31/19 17:08 - Clinical Findings Intake & Output: Intake & Output 04/06/19 04/07/19 04/07/19 23:59 07:59 15:59 Intake Total 24 / 1167.1 1200 / 1200 Output Total 1725 / 2985 1050 / 1350 300 / 1350 Balance -1701 / -1817.9 150 / -150 -300 / -150 Weight 64 kg - VTE Documentation of Mechanical Device: Intermittent pneumatic compression device Consult Discharge Plan - Plan Referrals: NONE,PCP [Primary Care Provider] - <Champ Beckford - Last Filed: 04/07/19 22:36> Date of Encounter: 04/07/19 Assessment and Plan (1) Acute respiratory failure with hypoxia and hypercapnia Current Visit: Yes Status: Acute (2) Acute encephalopathy Current Visit: Yes Status: Acute (3) Acute exacerbation of chronic obstructive airways disease Current Visit: No Status: Acute (4) DVT prophylaxis Current Visit: Yes Status: Acute Objective PUL Vital signs: Last Vital Signs Temp 98.2 F 04/07/19 16:46 Pulse 126 04/07/19 17:00 Resp 18 04/07/19 17:00 BP 147/103 04/07/19 17:00 Pulse Ox 93 04/07/19 17:00 Results - Laboratory Findings CBC and BMP: 04/07/19 04:29 04/07/19 04:29 ABG ABG pH 7.51 pH Units (7.32-7.45) H 04/06/19 11:25 ABG pCO2 39 mmHg (35-45) 04/06/19 11:25 ABG pO2 64 mmHg (85-104) L 04/06/19 11:25 ABG O2 Saturation 94 % (95-98) L 04/06/19 11:25 Abnormal lab findings: Abnormal lab results WBC 14.3 K/mcL (4.3-11.1) H 04/07/19 04:29 Hct 45.2 % (35.3-44.9) H 04/07/19 04:29 MCHC 31.5 g/dL (31.6-35.5) L 04/04/19 04:32 RDW 14.7 % (11.5-14.5) H 04/03/19 03:28 Neutrophils # 9.4 K/mcL (1.6-8.9) H 04/07/19 04:29 Lymphocytes # 0.4 K/mcL (0.6-4.6) L 03/31/19 11:41 ABG pH 7.51 pH Units (7.32-7.45) H 04/06/19 11:25 ABG pCO2 49 mmHg (35-45) H 04/06/19 04:14 ABG pO2 64 mmHg (85-104) L 04/06/19 11:25 ABG HCO3 31 mEq/L (21-27) H 04/06/19 11:25 ABG Total CO2 32 mEq/L (20-26) H 04/06/19 11:25 ABG O2 Saturation 94 % (95-98) L 04/06/19 11:25 ABG Base Excess 7 mEq/L (-2 to 3) H 04/06/19 11:25 VBG pH 7.49 pH Units (7.32-7.42) H 04/07/19 04:40 VBG pCO2 36 mmHg (41-51) L 04/07/19 04:40 VBG pO2 94 mmHg (25-50) H 04/07/19 04:40 VBG HCO3 28 mEq/L (21-27) H 04/07/19 04:40 Potassium 3.0 mEq/L (3.5-5.1) L 04/07/19 04:29 Chloride 108 mEq/L (98-107) H 04/04/19 04:32 Carbon Dioxide 31 mEq/L (23-29) H 04/06/19 05:44 BUN 30 mg/dL (6-20) H 04/06/19 05:44 Creatinine 0.44 mg/dL (0.60-1.20) L 04/07/19 04:29 BUN/Creatinine Ratio 41 (6-26) H 04/07/19 04:29 Glucose 135 mg/dL (70-105) H 04/06/19 05:44 POC Glucose 148 mg/dL (70-99) H 04/07/19 11:09 Calculated Osmolality 303 (280-300) H 04/03/19 03:28 Calcium 8.5 mg/dL (8.6-10.3) L 04/04/19 04:32 Total Bilirubin 0.2 mg/dL (0.3-1.0) L 04/04/19 04:32 AST 9 Units/L (13-39) L 04/06/19 05:44 Serum Total Protein 6.2 g/dL (6.4-8.9) L 04/06/19 05:44 Urine Clarity Turbid (Clear) A 03/31/19 12:52 Ur Specific Moon > 1.030 (1.010-1.025) H 03/31/19 12:52 Urine Protein 30 mg/dL (Neg-Trace) H 03/31/19 12:52 Urine Glucose (UA) 250 mg/dL (Normal) H 03/31/19 12:52 Urine Blood Moderate (Negative) H 03/31/19 12:52 Urine Bilirubin Small (Negative) H 03/31/19 12:52 Urine Microscopic RBC TNTC per hpf (0-3) H 03/31/19 12:52 Urine Microscopic WBC 5-15 per hpf (0-3) H 03/31/19 12:52 Ur Squamous Epith Cells Many per lpf (None-Few) H 03/31/19 12:52 Ur Buprenorphine Scrn Positive ng/mL (Cutoff=5) H 03/31/19 12:57 U Benzodiazepines Scrn Positive ng/mL (Cvjhbz=316) H 03/31/19 12:57 Entero/Rhino (PCR) DETECTED (Not Detect) A 03/31/19 17:08 - Clinical Findings Intake & Output: Intake & Output 04/07/19 04/07/19 04/07/19 07:59 15:59 23:59 Intake Total 1200 / 1579 300 / 1579 79 / 1579 Output Total 1050 / 1850 500 / 1850 300 / 1850 Balance 150 / -271 -200 / -271 -221 / -271 Weight 64 kg - Attending Attestation Attending Attestation I saw and evaluated this patient and my medical decision-making was reviewed with the Resident Physician. I agree with the documented findings, disposition and treatment plan as described except to the extent set forth below. We independently had [id number] contact with the patient Patient seen and examined at bedside Labs, radiology, chart personally reviewed. Management was reviewed during multidisciplinary critical care rounds. PULL OVER: Patient still has agitated delirium history was started on Seroquel to increase the dose of Seroquel and Haldol. EEG showed no evidence of seizure activity. 04/06 patient is more awake following commands connecting with me no significant encephalopathy today. Will try to extubate today. 04/07 patient is more alert not in the encephalopathy conscious oriented participated in history of present illness patient does not have any complaints denies any chest pain chest tightness patient does not know how she got to the hospital Pulm: Patient has acceptable oxygenation and ventilation viral exacerbation of COPD, patient was put on spontaneous breathing trial patient got agitated 04/06 patient has acceptable oxygenation and ventilation patient passed the spontaneous breathing trial extubated to nasal cannula will do gentle diuresis as tolerated. 04/07 Patient has acceptable oxygenation and ventilation patient is auto diuresing. Cards: Patient is hemodynamically stable diuresis as tolerated but currently patient is auto diuresing. 04/06 she hemodynamically stable patient is auto diuresing 04/07 patient is hemodynamically stable and she is auto diuresing FEN-GI: Advance diet as tolerated Renal: Labs and output were reviewed ID: No active infectious disease issues Heme/Onc: Labs reviewed Endo: Glucose Monitored Integ/MSK: Skin Care per routine ICU Nursing Protocol to prevent ulcers. Lines: All lines examined without evidence of infection : Dispo: patient can be transferred to medical telemetry. CODE:Full Code
[2019-04-07] MEDS ORDERED: Sennosides 8.6 MG TABLET PO PRN (10:52)
--- NOTE | 2019-04-07 14:35 | Internal Med Progress Note ---
Hospitalist Progress Note - Encounter Date of Encounter: 04/07/19 Time of Encounter: 14:33 - Subjective Interval History: This is a 54-year-old female with a past medical history of CHF, COPD, ongoing tobacco abuse admitted to our facility on 03/31/2019. She was initially in respiratory distress requiring BiPAP, however she continued to worsen and was ultimately intubated. Initial blood gas showed a pH of 7.28, PCO2 of 49. Patient is currently day #6 above ventilatory support. He was some question of substance abuse that she did test positive for Suboxone, but we cannot verify. Patient also has a history of baseline anxiety disorder. She is currently showing improvement and we are attempting spontaneous breathing trial today. No evidence of infection. We have added Seroquel to her regimen as well as when necessary hydralazine for her encephalopathy, documented psychosis. 04/06: Successfully extubated today. She remains on low-dose Precedex due to anxiety. Patient is denying any chest pain or shortness of breath. She is an unreliable historian as she still remains mildly confused. No nausea or vomiting. No fevers or chills. 04/07: Patient has done well since extubation. We did add mucolytics. Prednisone changed to oral and this will be tapered. She states her breathing is significantly improved. No chest pain. No nausea or vomiting. No fevers or chills. Patient states she is very weak. She notes as a nonproductive cough Other not mentioned above a 10 point review of systems is negative - Exam Vitals: Temp Pulse Resp BP Pulse Ox 97.9 F 117 17 145/93 92 04/07/19 11:00 04/07/19 14:00 04/07/19 14:00 04/07/19 12:30 04/07/19 14:00 Exam: General: Resting quietly, no acute distress, mild confusion, nontoxic appearance Skin is pale, warm and dry no rash Oropharynx moist Neck is supple Lungs show diminished breath sounds at the bases otherwise clear, scant wheeze. Overall significantly improved air movement Heart regular rate and rhythm Abdomen is soft nontender nondistended with normoactive bowel sounds X-ray show no edema, capillary refill less than 2.5 second Neurogical exam grossly nonfocal - Assessment and Plan (1) Acute respiratory failure with hypoxia and hypercapnia Current Visit: Yes Status: Acute Assessment and Plan: Due to COPD exacerbation Improved See below (2) Acute encephalopathy Current Visit: Yes Status: Acute Assessment and Plan: She is now on Seroquel and when necessary Haldol -monitor QT interval -improving, weaning sedatives 04/07: Resolved (3) Acute exacerbation of chronic obstructive airways disease Current Visit: No Status: Acute Assessment and Plan: Aggressive bronchodilator therapy, steroid taper, monitor Smoking cessation Patient has been quite tachycardic, we are switching her to Xopenex to see if that helps, she is also on a beta denilson we will continue this, consider up titration. (4) DVT prophylaxis Current Visit: Yes Status: Acute Assessment and Plan: Subcutaneous heparin (5) Hypokalemia Current Visit: No Status: Resolved (6) Tobacco abuse Current Visit: Yes Status: Acute - Time Spent with Patient Total time spent is greater than 50% in coordination of care (as documented) at patient's floor/unit and/or counseling patient: Internal Medicine: Result - Labs CBC & Chem 7: 04/07/19 04:29 04/07/19 04:29 Labs: Short CBC 04/07/19 Range/Units 04:29 WBC 14.3 H (4.3-11.1) K/mcL Hgb 14.7 D (11.5-15.4) g/dL Hct 45.2 H (35.3-44.9) % Plt Count 230 (140-400) K/mcL Neutrophils # 9.4 H (1.6-8.9) K/mcL BMP 04/07/19 04:29 Sodium 143 Potassium 3.0 L Chloride 105 Carbon Dioxide 25 BUN 18 Creatinine 0.44 L Glucose 101 Calcium 9.2 Liver Function 04/07/19 Range/Units 04:29 Total Bilirubin 0.8 (0.3-1.0) mg/dL AST 16 (13-39) Units/L ALT 22 (7-52) Units/L Alkaline Phosphatase 47 (34-104) Units/L Albumin 3.9 (3.5-5.7) g/dL - ABG Interpretation ABG results: ABG ABG pH 7.51 pH Units (7.32-7.45) H 04/06/19 11:25 ABG pCO2 39 mmHg (35-45) 04/06/19 11:25 ABG pO2 64 mmHg (85-104) L 04/06/19 11:25 ABG O2 Saturation 94 % (95-98) L 04/06/19 11:25 - VTE Documentation of Mechanical Device: Intermittent pneumatic compression device Consult Discharge Plan - Plan Referrals: NONE,PCP [Primary Care Provider] -
[2019-04-07] MEDS: Levalbuterol Neb 1.25 MG/3 ML IH SCH ×2 (16:39→22:32)
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
[2019-04-08] MEDS: Levalbuterol Neb 1.25 MG/3 ML IH SCH ×4 (03:22→22:26)
[2019-04-08 04:15] LABS: Basophils # 0.1 K/mcL (0.0-0.2); Basophils % 0.4 %; Eosinophils # 0.1 K/mcL (0.0-0.6); Eosinophils % 0.8 %; Hematocrit 49.4 % (35.3-44.9); Immature Granulocytes % 1.8 % (0-4); Lymphocytes # 2.8 K/mcL (0.6-4.6); Lymphocytes % 16.4 %; Mean Corpuscular Hemoglobin 30.2 pg (28.0-33.3); Mean Corpuscular Volume 91.5 fL (83.0-100.0); Mean Platelet Volume 11.7 fL (9.4-12.4); Monocytes # 1.4 K/mcL (0.0-1.3); Monocytes % 7.9 %; Neutrophils # 12.4 K/mcL (1.6-8.9); Platelet Count 269 K/mcL (140-400); Red Cell Distribution Width 14.1 % (11.5-14.5); Segmented Neutrophils % 72.7 %
[2019-04-08 04:17] LABS: Hemoglobin 16.3 g/dL (11.5-15.4)
[2019-04-08 04:32] LABS: Alanine Aminotransferase 29 Units/L (7-52); Albumin 4.2 g/dL (3.5-5.7); Albumin/Globulin Ratio 1.4 (1.1-2.2); Alkaline Phosphatase 54 Units/L (34-104); Aspartate Amino Transferase 16 Units/L (13-39); BUN/Creatinine Ratio 48 (6-26); Bilirubin,Total 0.8 mg/dL (0.3-1.0); Blood Urea Nitrogen 23 mg/dL (6-20); Calcium 9.7 mg/dL (8.6-10.3); Carbon Dioxide 21 mEq/L (23-29); Chloride 106 mEq/L (98-107); Globulin 3.1 g/dL (2.4-3.5); Glucose 106 mg/dL (70-105); Osmolality,Calculated 294 (280-300); Potassium 3.3 mEq/L (3.5-5.1); Sodium 140 mEq/L (136-145); Total Protein 7.3 g/dL (6.4-8.9); eGFR For African Americans > 60 (> 60); eGFR For Non-African Americans > 60 (> 60)
[2019-04-08] MEDS: *HR* Heparin 5,000 UNIT/ML VIAL SQ SCH ×2 (06:30→17:18)
[2019-04-08] MEDS: Nicotine 21 MG PATCH.TD24 TD SCH (09:35)
[2019-04-08] MEDS: predniSONE 20 MG TABLET PO SCH (09:35)
[2019-04-08] MEDS: Budesonide/Formoterol 80/4.5 1 PUFF INH IH SCH ×2 (10:33→22:26)
--- NOTE | 2019-04-08 14:22 | Internal Med Progress Note ---
Hospitalist Progress Note - Encounter Date of Encounter: 04/08/19 Time of Encounter: 14:19 - Subjective Interval History: Patient seen and examined. No acute events overnight. Patient states she is doing well. Patient denies chest pain, dyspnea. She does admit to weakness. PT/OT recommending SNF placement. Social workers managing this. - Exam Vitals: Temp Pulse Resp BP Pulse Ox 99.1 F 96 16 136/96 94 04/08/19 10:42 04/08/19 10:42 04/08/19 10:42 04/08/19 10:42 04/08/19 10:42 Exam: General: Resting quietly, no acute distress, mild confusion, nontoxic appearance Skin is pale, warm and dry no rash Oropharynx moist Neck is supple Lungs show diminished breath sounds at the bases otherwise clear, scant wheeze. Overall significantly improved air movement Heart regular rate and rhythm Abdomen is soft nontender nondistended with normoactive bowel sounds X-ray show no edema, capillary refill less than 2.5 second Neurogical exam grossly nonfocal - Assessment and Plan (1) Acute respiratory failure with hypoxia and hypercapnia Current Visit: Yes Status: Acute Assessment and Plan: Initially admitted and intubated for COPD exacerbation Patient now extubated and doing well Stable on room air Plan: Continue bronchodilators Can d/c steroids as she has completed course (2) Acute encephalopathy Current Visit: Yes Status: Resolved Assessment and Plan: Patient is now on seroquel; has not required any PRN haldol (3) DVT prophylaxis Current Visit: Yes Status: Acute Assessment and Plan: subq heparin (4) Leukocytosis Current Visit: Yes Status: Acute Assessment and Plan: increase in WBC today to 17.1; may be secondary to hemodilution and steroids patient is afebrile with stable vital signs and no symptoms of any infection plan: monitor; d/c steroid (5) Acute exacerbation of chronic obstructive airways disease Current Visit: No Status: Acute Assessment and Plan: see above - Time Spent with Patient Total time spent is greater than 50% in coordination of care (as documented) at patient's floor/unit and/or counseling patient: 35 minutes Plan of Care Discussed with: patient Internal Medicine: Result - Labs CBC & Chem 7: 04/08/19 03:15 04/08/19 03:15 Labs: Short CBC 04/08/19 Range/Units 03:15 WBC 17.0 H (4.3-11.1) K/mcL Hgb 16.3 H D (11.5-15.4) g/dL Hct 49.4 H (35.3-44.9) % Plt Count 269 (140-400) K/mcL Neutrophils # 12.4 H (1.6-8.9) K/mcL BMP 04/08/19 03:15 Sodium 140 Potassium 3.3 L Chloride 106 Carbon Dioxide 21 L BUN 23 H Creatinine 0.48 L Glucose 106 H Calcium 9.7 Liver Function 04/08/19 Range/Units 03:15 Total Bilirubin 0.8 (0.3-1.0) mg/dL AST 16 (13-39) Units/L ALT 29 (7-52) Units/L Alkaline Phosphatase 54 (34-104) Units/L Albumin 4.2 (3.5-5.7) g/dL - ABG Interpretation ABG results: ABG ABG pH 7.51 pH Units (7.32-7.45) H 04/06/19 11:25 ABG pCO2 39 mmHg (35-45) 04/06/19 11:25 ABG pO2 64 mmHg (85-104) L 04/06/19 11:25 ABG O2 Saturation 94 % (95-98) L 04/06/19 11:25 - VTE Documentation of Mechanical Device: Intermittent pneumatic compression device Consult Discharge Plan - Plan Referrals: NONE,PCP [Primary Care Provider] - (4) Leukocytosis Qualifiers: Leukocytosis type: unspecified Qualified Code(s): D72.829 - Elevated white blood cell count, unspecified
[2019-04-09] MEDS: Levalbuterol Neb 1.25 MG/3 ML IH SCH ×4 (03:29→22:43)
[2019-04-09] MEDS: *HR* Heparin 5,000 UNIT/ML VIAL SQ SCH ×2 (05:16→17:56)
[2019-04-09 07:04] LABS: Basophils # 0.1 K/mcL (0.0-0.2); Basophils % 0.4 %; Eosinophils # 0.1 K/mcL (0.0-0.6); Eosinophils % 0.4 %; Hematocrit 50.6 % (35.3-44.9); Hemoglobin 16.6 g/dL (11.5-15.4); Immature Granulocytes % 1.1 % (0-4); Lymphocytes # 3.3 K/mcL (0.6-4.6); Mean Corpuscular HGB Conc 32.8 g/dL (31.6-35.5); Mean Corpuscular Hemoglobin 29.8 pg (28.0-33.3); Mean Corpuscular Volume 90.8 fL (83.0-100.0); Mean Platelet Volume 11.7 fL (9.4-12.4); Monocytes # 1.4 K/mcL (0.0-1.3); Monocytes % 8.7 %; Neutrophils # 10.9 K/mcL (1.6-8.9); Platelet Count 302 K/mcL (140-400); Red Blood Count 5.57 M/mcL (3.82-4.97); Red Cell Distribution Width 14.1 % (11.5-14.5); Segmented Neutrophils % 68.4 %; White Blood Count 15.9 K/mcL (4.3-11.1)
[2019-04-09] MEDS ORDERED: 0.9 % Sodium Chloride 500 ML IVC ONE (07:18)
[2019-04-09 07:23] LABS: Alanine Aminotransferase 37 Units/L (7-52); Albumin 4.3 g/dL (3.5-5.7); Albumin/Globulin Ratio 1.4 (1.1-2.2); Alkaline Phosphatase 53 Units/L (34-104); Aspartate Amino Transferase 14 Units/L (13-39); BUN/Creatinine Ratio 52 (6-26); Bilirubin,Total 0.7 mg/dL (0.3-1.0); Blood Urea Nitrogen 24 mg/dL (6-20); Calcium 9.5 mg/dL (8.6-10.3); Carbon Dioxide 20 mEq/L (23-29); Chloride 109 mEq/L (98-107); Globulin 3.1 g/dL (2.4-3.5); Glucose 119 mg/dL (70-105); Osmolality,Calculated 303 (280-300); Potassium 3.2 mEq/L (3.5-5.1); Sodium 144 mEq/L (136-145); Total Protein 7.4 g/dL (6.4-8.9); eGFR For African Americans > 60 (> 60); eGFR For Non-African Americans > 60 (> 60)
[2019-04-09] MEDS ORDERED: predniSONE 20 MG TABLET PO SCH (09:00)
[2019-04-09] MEDS: Nicotine 21 MG PATCH.TD24 TD SCH (09:17)
[2019-04-09] MEDS: Budesonide/Formoterol 80/4.5 1 PUFF INH IH SCH ×2 (10:26→22:43)
--- NOTE | 2019-04-09 13:37 | Internal Med Progress Note ---
Hospitalist Progress Note - Encounter Date of Encounter: 04/09/19 Time of Encounter: 13:35 - Subjective Interval History: Patient seen and examined. Patient states no acute complaints. She is comfortable on room. Placement still pending - Exam Vitals: Temp Pulse Resp BP Pulse Ox 97.9 F 99 18 129/91 93 04/09/19 10:45 04/09/19 10:45 04/09/19 10:45 04/09/19 10:45 04/09/19 10:45 Exam: General: Resting quietly, no acute distress, mild confusion, nontoxic appearance Skin is pale, warm and dry no rash Oropharynx moist Neck is supple Lungs show diminished breath sounds at the bases otherwise clear, scant wheeze. Overall significantly improved air movement Heart regular rate and rhythm Abdomen is soft nontender nondistended with normoactive bowel sounds X-ray show no edema, capillary refill less than 2.5 second Neurogical exam grossly nonfocal - Assessment and Plan (1) Acute respiratory failure with hypoxia and hypercapnia Current Visit: Yes Status: Acute Assessment and Plan: Initially admitted and intubated for COPD exacerbation Patient now extubated and doing well Stable on room air Plan: Continue bronchodilators (2) Acute encephalopathy Current Visit: Yes Status: Resolved Assessment and Plan: Patient is now on seroquel; has not required any PRN haldol Patient has been evaluated by OT and they are recommending SNF placement Plan: Placement per case management (3) DVT prophylaxis Current Visit: Yes Status: Acute Assessment and Plan: subq heparin (4) Leukocytosis Current Visit: Yes Status: Acute Assessment and Plan: increase in WBC today to 17.1; may be secondary to hemodilution and steroids patient is afebrile with stable vital signs and no symptoms of any infection Trending down plan: monitor (5) Acute exacerbation of chronic obstructive airways disease Current Visit: No Status: Acute Assessment and Plan: see above - Time Spent with Patient Total time spent is greater than 50% in coordination of care (as documented) at patient's floor/unit and/or counseling patient: 30 minutes Plan of Care Discussed with: patient Internal Medicine: Result - Labs CBC & Chem 7: 04/09/19 05:58 04/09/19 05:58 Labs: Short CBC 04/09/19 Range/Units 05:58 WBC 15.9 H (4.3-11.1) K/mcL Hgb 16.6 H (11.5-15.4) g/dL Hct 50.6 H (35.3-44.9) % Plt Count 302 (140-400) K/mcL Neutrophils # 10.9 H (1.6-8.9) K/mcL BMP 04/09/19 05:58 Sodium 144 Potassium 3.2 L Chloride 109 H Carbon Dioxide 20 L BUN 24 H Creatinine 0.46 L Glucose 119 H Calcium 9.5 Liver Function 04/09/19 Range/Units 05:58 Total Bilirubin 0.7 (0.3-1.0) mg/dL AST 14 (13-39) Units/L ALT 37 (7-52) Units/L Alkaline Phosphatase 53 (34-104) Units/L Albumin 4.3 (3.5-5.7) g/dL - ABG Interpretation ABG results: ABG ABG pH 7.51 pH Units (7.32-7.45) H 04/06/19 11:25 ABG pCO2 39 mmHg (35-45) 04/06/19 11:25 ABG pO2 64 mmHg (85-104) L 04/06/19 11:25 ABG O2 Saturation 94 % (95-98) L 04/06/19 11:25 - VTE Documentation of Mechanical Device: Intermittent pneumatic compression device Consult Discharge Plan - Plan Referrals: NONE,PCP [Primary Care Provider] - _ (4) Leukocytosis Qualifiers: Leukocytosis type: unspecified Qualified Code(s): D72.829 - Elevated white blood cell count, unspecified
[2019-04-10] MEDS: Levalbuterol Neb 1.25 MG/3 ML IH SCH (03:47)
[2019-04-10 03:58] LABS: Basophils # 0.1 K/mcL (0.0-0.2); Basophils % 0.5 %; Eosinophils # 0.2 K/mcL (0.0-0.6); Eosinophils % 1.1 %; Hematocrit 51.1 % (35.3-44.9); Hemoglobin 16.7 g/dL (11.5-15.4); Immature Granulocytes % 0.9 % (0-4); Lymphocytes # 4.6 K/mcL (0.6-4.6); Lymphocytes % 27.5 %; Mean Corpuscular HGB Conc 32.7 g/dL (31.6-35.5); Mean Corpuscular Hemoglobin 30.5 pg (28.0-33.3); Mean Corpuscular Volume 93.2 fL (83.0-100.0); Mean Platelet Volume 11.4 fL (9.4-12.4); Monocytes # 1.5 K/mcL (0.0-1.3); Monocytes % 8.8 %; Neutrophils # 10.2 K/mcL (1.6-8.9); Platelet Count 286 K/mcL (140-400); Red Blood Count 5.48 M/mcL (3.82-4.97); Segmented Neutrophils % 61.2 %; White Blood Count 16.7 K/mcL (4.3-11.1)
[2019-04-10 04:17] LABS: Alanine Aminotransferase 39 Units/L (7-52); Albumin 4.3 g/dL (3.5-5.7); Albumin/Globulin Ratio 1.4 (1.1-2.2); Alkaline Phosphatase 52 Units/L (34-104); Aspartate Amino Transferase 15 Units/L (13-39); BUN/Creatinine Ratio 36 (6-26); Bilirubin,Total 0.7 mg/dL (0.3-1.0); Blood Urea Nitrogen 20 mg/dL (6-20); Calcium 9.8 mg/dL (8.6-10.3); Carbon Dioxide 20 mEq/L (23-29); Chloride 113 mEq/L (98-107); Globulin 3.1 g/dL (2.4-3.5); Glucose 123 mg/dL (70-105); Osmolality,Calculated 298 (280-300); Potassium 3.8 mEq/L (3.5-5.1); Sodium 142 mEq/L (136-145); Total Protein 7.4 g/dL (6.4-8.9); eGFR For African Americans > 60 (> 60); eGFR For Non-African Americans > 60 (> 60)
[2019-04-10] MEDS ORDERED: *HR* Metoprolol 5 MG/5 ML VIAL IVP ONE (04:48)
[2019-04-10] MEDS: *HR* Heparin 5,000 UNIT/ML VIAL SQ SCH (05:29)
[2019-04-10 07:25] VITALS: BP 127/77
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
[2019-04-11] MEDS ORDERED: predniSONE 10 MG TABLET PO SCH (09:00)
== END 2019-04-10 08:45 | disposition left against medical advice (07) | DRG 130 ==
LOC: SUATTDRO 03:06 → ICNU 03:06 → 2ANU 04-07 18:50
PROVIDERS: ADMIT Family Medicine; ATTEND Family Medicine

== ENCOUNTER 2021-06-15 10:38 | Inpatient (IN) ==
[2021-06-15] MEDS ORDERED: Furosemide 40 MG/4 ML VIAL ONE (13:40)
[2021-06-15] MEDS ORDERED: Ipratropium/Albuterol Neb 3 ML ONE (13:47)
[2021-06-15] MEDS ORDERED: Ipratropium/Albuterol Neb 3 ML IH ONE (14:00)
[2021-06-15] MEDS ORDERED: Ondansetron ODT 4 MG TAB.RAPDIS SL PRN (14:02)
[2021-06-15] MEDS ORDERED: Naloxone 0.4 MG/ML INJ IVP PRN (14:02)
[2021-06-15] MEDS ORDERED: Furosemide 20 MG/2 ML VIAL IVP ONE (14:07)
[2021-06-15] MEDS: cefTRIAXone 1,000 MG in Water for inj. (sterile) 10 ML IVP SCH (15:11)
[2021-06-15] MEDS: Nicotine 21 MG PATCH.TD24 TD SCH (15:11)
[2021-06-15] MEDS: Albuterol 2.5 MG/3 ML NEBULIZER IH SCH ×3 (15:44→23:43)
[2021-06-15] MEDS: MethylPREDNISolone 40 MG/ML VIAL IVP SCH (17:12)
[2021-06-15] MEDS: *HR* Heparin 5,000 UNIT/ML VIAL SQ SCH (17:12)
[2021-06-15 19:53] LABS: ABG Base Excess 2 mEq/L (-2 to 3); ABG HCO3 30 mEq/L (21-27); ABG Oxygen Saturation 95 % (95-98); ABG PCO2 58 mmHg (35-45); ABG PH 7.32 pH Units (7.32-7.45); ABG PO2 82 mmHg (85-104); ABG TCO2 32 mEq/L (20-26); Blood Gas Modality BiLevel; Blood Gas VT 802 cc
[2021-06-16] MEDS: Albuterol 2.5 MG/3 ML NEBULIZER IH SCH ×5 (03:25→20:17)
[2021-06-16] MEDS: MethylPREDNISolone 40 MG/ML VIAL IVP SCH ×4 (04:50→17:39)
[2021-06-16] MEDS: *HR* Heparin 5,000 UNIT/ML VIAL SQ SCH ×2 (05:02→17:39)
[2021-06-16 07:04] LABS: Basophils % 0.2 %; Hematocrit 41.2 % (35.3-44.9); Immature Granulocytes % 0.4 % (0-4); Lymphocytes # 0.8 K/mcL (0.6-4.6); Lymphocytes % 7.6 %; Mean Corpuscular HGB Conc 31.6 g/dL (31.6-35.5); Mean Corpuscular Hemoglobin 29.7 pg (28.0-33.3); Mean Corpuscular Volume 94.3 fL (83.0-100.0); Mean Platelet Volume 12.5 fL (9.4-12.4); Monocytes # 0.9 K/mcL (0.0-1.3); Monocytes % 8.9 %; Neutrophils # 8.4 K/mcL (1.6-8.9); Platelet Count 222 K/mcL (140-400); Red Blood Count 4.37 M/mcL (3.82-4.97); Red Cell Distribution Width 14.2 % (11.5-14.5); Segmented Neutrophils % 82.9 %; White Blood Count 10.1 K/mcL (4.3-11.1)
[2021-06-16 07:27] LABS: BUN/Creatinine Ratio 32 (6-26); Blood Urea Nitrogen 19 mg/dL (6-20); Calcium 9.4 mg/dL (8.6-10.3); Carbon Dioxide 30 mEq/L (23-29); Chloride 103 mEq/L (98-107); Glucose 115 mg/dL (70-105); Osmolality,Calculated 295 (280-300); Potassium 4.1 mEq/L (3.5-5.1); Sodium 141 mEq/L (136-145); eGFR For African Americans > 60 (> 60); eGFR For Non-African Americans > 60 (> 60)
[2021-06-16] MEDS: cefTRIAXone 1,000 MG in Water for inj. (sterile) 10 ML IVP SCH (10:18)
[2021-06-16] MEDS: Nicotine 21 MG PATCH.TD24 TD SCH (10:18)
[2021-06-16] MEDS: Azithromycin 500 MG in 0.9 % Sodium Chloride 250 ML IVPB SCH (10:18)
[2021-06-16] MEDS: Benzonatate 100 MG CAPSULE PO PRN (21:04)
[2021-06-17] MEDS: Albuterol 2.5 MG/3 ML NEBULIZER IH SCH ×3 (00:09→07:25)
[2021-06-17] MEDS: MethylPREDNISolone 40 MG/ML VIAL IVP SCH ×2 (00:13→06:05)
[2021-06-17] MEDS: *HR* Heparin 5,000 UNIT/ML VIAL SQ SCH (06:05)
[2021-06-17] MEDS: Benzonatate 100 MG CAPSULE PO PRN (06:06)
[2021-06-17 07:08] VITALS: BP 133/79; PULSE 86; TEMP 98.3
[2021-06-17 07:52] LABS: Hematocrit 40.9 % (35.3-44.9); Hemoglobin 13.3 g/dL (11.5-15.4); Mean Corpuscular HGB Conc 32.5 g/dL (31.6-35.5); Mean Corpuscular Hemoglobin 30.5 pg (28.0-33.3); Mean Corpuscular Volume 93.8 fL (83.0-100.0); Mean Platelet Volume 12.4 fL (9.4-12.4); Platelet Count 257 K/mcL (140-400); Red Blood Count 4.36 M/mcL (3.82-4.97); Red Cell Distribution Width 14.2 % (11.5-14.5)
[2021-06-17 07:53] LABS: White Blood Count 15.4 K/mcL (4.3-11.1)
[2021-06-17 08:19] LABS: BUN/Creatinine Ratio 30 (6-26); Blood Urea Nitrogen 19 mg/dL (6-20); Calcium 9.4 mg/dL (8.6-10.3); Carbon Dioxide 28 mEq/L (23-29); Chloride 105 mEq/L (98-107); Glucose 146 mg/dL (70-105); Osmolality,Calculated 295 (280-300); Potassium 4.2 mEq/L (3.5-5.1); Sodium 140 mEq/L (136-145); eGFR For African Americans > 60 (> 60); eGFR For Non-African Americans > 60 (> 60)
[2021-06-17] MEDS: Nicotine 21 MG PATCH.TD24 TD SCH (09:36)
[2021-06-17] MEDS: cefTRIAXone 1,000 MG in Water for inj. (sterile) 10 ML IVP SCH (09:36)
[2021-06-17] MEDS: Azithromycin 500 MG in 0.9 % Sodium Chloride 250 ML IVPB SCH (09:38)
[2021-06-17 10:03] VITALS: O2SAT 91
== END 2021-06-17 11:07 | disposition home or self-care (01) | DRG 720 ==
LOC: 2ANU → SUATTDRO 13:28
PROVIDERS: ADMIT Pharmacist; ATTEND Internal Medicine